=== PATIENT | female | born 2000 | race Caucasian/White ===

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

== ENCOUNTER 2022-07-01 11:40 | Outpatient (REF) | payer OTHER, SELFPAY ==
[2022-07-01 12:48] LABS: Estimated Average Glucose 105 mg/dL; Hemoglobin A1c % 5.3 %
[2022-07-01 13:17] LABS: Cholesterol 253 mg/dL; HDL Cholesterol 78 mg/dL; LDL Cholesterol Calculated 144 mg/dl; Triglycerides 155 mg/dL
== END 2022-07-01 11:41 | disposition home or self-care (01) ==
LOC: HO.LAB 11:40
PROVIDERS: PCP Family Medicine; Visit Provider Registered Nurse Psychiatric/Mental Health, Child & Adolescent
DX: Z79.899 Other long term (current) drug therapy (principal)
CPT/HCPCS: 36415; 80061; 83036

== ENCOUNTER 2022-08-12 10:57 | Outpatient (REF) | payer OTHER, SELFPAY ==
[2022-08-12 17:21] LABS: TSH reflex Free T4 1.68 uIU/mL (0.32-4.0)
== END 2022-08-12 10:58 | disposition home or self-care (01) ==
LOC: HO.10HDL 10:57
PROVIDERS: Visit Provider Pediatrics Pediatric Endocrinology
DX: E03.9 Hypothyroidism, unspecified (principal)
CPT/HCPCS: 36415; 84443

== ENCOUNTER 2022-12-06 17:51 | Emergency (ER) | payer OTHER, SELFPAY ==
[2022-12-06 18:13] VITALS: BP 163/88; PULSE 124; RESP 20; TEMP 37.1; O2SAT 100; BMI 28.8
--- NOTE | 2022-12-06 18:13 | ED_ITS ---
HPI - General Adult General Chief complaint: Ear Problems <YAMILET Carcamo - Last Filed: 12/06/22 18:17> Stated complaint: back of left ear object <YAMILET Carcamo - Last Filed: 12/06/22 18:17> Time Seen by Provider: 12/06/22 19:53 <YAMILET Carcamo - Last Filed: 12/06/22 18:17> Source: patient and family <Paty Renee NP - Last Filed: 12/06/22 20:17> Mode of arrival: ambulatory <Paty Renee NP - Last Filed: 12/06/22 20:17> Limitations: physical limitation (Cerebral palsy, autism) <Paty Renee NP - Last Filed: 12/06/22 20:17> History of Present Illness HPI narrative: 22-year-old female, with father at bedside, with past medical history of autism and cerebral palsy presents for a foreign body in her left ear lobe. <Paty Renee NP - Last Filed: 12/06/22 20:17> Onset (ago): day(s) (1) <Paty Renee NP - Last Filed: 12/06/22 20:17> Location: left (Ear lobe) <Paty Renee NP - Last Filed: 12/06/22 20:17> Radiation: non-radiation <Paty Renee NP - Last Filed: 12/06/22 20:17> Severity: mild <Paty Renee NP - Last Filed: 12/06/22 20:17> Quality: aching <Paty Renee NP - Last Filed: 12/06/22 20:17> Pain Consistency: constant <Paty Renee NP - Last Filed: 12/06/22 20:17> Relieving factors: none <Paty Renee NP - Last Filed: 12/06/22 20:17> Exacerbating factors: other (Palpation) <Paty Renee NP - Last Filed: 12/06/22 20:17> Associated symptoms: denies other symptoms <Paty Renee NP - Last Filed: 12/06/22 20:17> Treatments prior to arrival: none <Paty Renee NP - Last Filed: 12/06/22 20:17> Related Data Home medications: Previous Rx's Medication Instructions Recorded lorazepam 1 mg tablet (Ativan) 1 mg PO DAILY PRN seizure activity 07/05/21 #10 tabs <YAMILET Carcamo - Last Filed: 12/06/22 18:17> Allergies/adverse reactions: Allergies Allergy/AdvReac Type Severity Reaction Status Date / Time No Known Allergies Allergy Verified 09/22/20 20:31 <YAMILET Carcamo - Last Filed: 12/06/22 18:17> Review of Systems Review of Systems: ENT/Mouth: Positive foreign body to left ear lobe Skin: No Skin lacerations, No rash <Paty Renee NP - Last Filed: 12/06/22 20:17> Yes all other systems are reviewed and are negative <Paty Renee NP - Last Filed: 12/06/22 20:17> [facility] Past Medical History Attestation statement: The following information was validated with the patient. <Paty Renee NP - Last Filed: 12/06/22 20:17> Source: old records reviewed <Paty Renee NP - Last Filed: 12/06/22 20:17> Medical History: Medical History Autism Cerebral palsy Development disorder, mixed GERD (gastroesophageal reflux disease) <YAMILET Carcamo - Last Filed: 12/06/22 18:17> Social History Social History: Social History Alcohol intake: never Patient Tobacco Use Status: Never used Tobacco Advance Directives: No Advance Directives Information Provided: No <YAMILET Carcamo Last Filed: 12/06/22 18:17> Physical Exam ED Vital Signs: Vital Signs - 24 hr 12/06/22 18:13 Temperature 98.7 F Pulse Rate 124 H Respiratory Rate 20 Blood Pressure 163/88 H Pulse Oximetry 100 Oxygen Delivery Method Room Air BMI result Body Mass Index 28.8 <YAMILET Carcamo Last Filed: 12/06/22 18:17> Vital Signs - 24 hr 12/06/22 18:13 Temperature 98.7 F Pulse Rate 124 H Respiratory Rate 20 Blood Pressure 163/88 H Pulse Oximetry 100 Oxygen Delivery Method Room Air BMI result Body Mass Index 28.8 <Paty Renee NP - Last Filed: 12/06/22 20:17> Appearance: Alert. Oriented X3. No acute distress. Eyes: Pupils equal, round and reactive to light. ENT: Pharynx normal. earing back to the left ear lobe. Neck: Normal inspection. Neck supple. CVS: Normal heart rate and rhythm. Pulses normal. Respiratory: No respiratory distress. Breath sounds normal. Skin: Skin warm and dry. Normal skin color. Normal skin turgor. Extremities: Gait balanced and coordinated. Neuro: No motor deficit. No sensory deficit. Cranial nerves 2-12 intact <Paty Renee NP - Last Filed: 12/06/22 20:17> Course Course Course Narrative: RME - 22 yo female with history of cerebral palsy, developmental delay, autism, seizures who presents to the ER for evaluation of a stuck earring back in her left ear. Anxious in triage. Plan: LMX vs SQ lido for better exam <YAMILET Carcamo - Last Filed: 12/06/22 18:17> RME - 22 yo female with history of cerebral palsy, developmental delay, autism, seizures who presents to the ER for evaluation of a stuck earring back in her left ear. Anxious in triage. Plan: LMX vs SQ lido for better exam 20:00 patient has a palpable foreign body to the left ear lobe. 1% lidocaine 1 mL injected, 1 mm gisella made with an 11 blade scalpel to the back of the ear lobe. earing back successfully removed without difficulty. Patient tolerated procedure well. Father at bedside throughout the entire procedure. Plan is to allow the ear to heal before applying any earrings. I did let the father know that she may need to have her ears re pierced. Supportive measures with Tylenol and Motrin. Father verbalized understanding of and agrees to plan of care discharge home. <Paty Renee NP - Last Filed: 12/06/22 20:17> Procedures Foreign Body Removal Time Out Performed: yes <Paty Renee NP - Last Filed: 12/06/22 20:17> Site: right and ear (Ear lobe) <Paty Renee NP - Last Filed: 12/06/22 20:17> Description of foreign body: other (earing back) <Paty Renee NP - Last Filed: 12/06/22 20:17> Technique: removal with forceps and incision made to facilitate removal <Paty Renee NP - Last Filed: 12/06/22 20:17> Confirmed by:: direct visualization <Paty Renee NP - Last Filed: 12/06/22 20:17> Complications: none <Paty Renee NP - Last Filed: 12/06/22 20:17> Discharge Plan Discharge Clinical Impression: Foreign body of left ear lobe <YAMILET Carcamo - Last Filed: 12/06/22 18:17> Patient Disposition: Home, Self-Care <YAMILET Carcamo - Last Filed: 12/06/22 18:17> Instructions: Soft Tissue Foreign Body (ED) <YAMILET Carcamo - Last Filed: 12/06/22 18:17> Additional Instructions: Your child was evaluated for an earring back imbedded into her left ear lobe. We successfully removed the foreign body. Please keep bandage in place as needed. Do not put earrings in this patient is here until wounds completely healed. She may need to have her ears pierced again. Thank you for choosing this emergency department for evaluation. Please follow-up with primary care physician as needed. Return to the emergency department for any new, concerning, or worsening symptoms. <YAMILET Carcamo - Last Filed: 12/06/22 18:17> Prescriptions: No Action lorazepam [Ativan] 1 mg tablet 1 mg PO DAILY PRN (Reason: seizure activity) Qty: 10 0RF <YAMILET Carcamo Last Filed: 12/06/22 18:17>
--- OUTSIDE RECORDS SUMMARY | 2022-12-06 19:35 | XMS_ITS | Continuity of Care Document ---
Author Name Unknown Organization [facility] Address [address] [place] [address]- Care Team Providers Care Transportation Supervisor Name Role Phone Jenni Marin MD Primary Care Physician Encounter [facility] [place] Date(s): 03/20/20 - 03/27/20 [facility] [address] [place] [address]- [facility] Attending Physician: Jenni Marin MD Admitting Physician: Jenni Marin MD Referring Physician: Jenni Marin MD Allergies, Adverse Reactions, Alerts Substance Reaction Severity Status NKA Active Medications Docusate 0 Refills, Maintenance, 06/08/18 15:17:34 EDT Start Date: 06/08/18 Status: Ordered levothyroxine 75 mcg (0.075 mg) oral tablet 1 tablet = 75 mcg, By Mouth, Daily, 1 tablet daily, 3 month supply, # 90 tablet, 4 Refills, Maintenance, 10/08/19 10:25:00 EST, Tablet, [id number], 157.9, cm, 10/08/19 10:07:00 EST, Height, 65.2, kg, 10/08/19 10:05:00 EST, Dry Weight Start Date: 10/08/19 Status: Ordered Melatonin Daily at bedtime, 0 Refills, Maintenance, 08/24/18 10:55:08 EST Start Date: 08/24/18 Status: Ordered omeprazole 20 mg oral delayed release tablet 1 tablet = 20 mg, By Mouth, Daily, # 90 tablet, 2 Refills, Maintenance, 06/26/19 13:32:54 EDT Start Date: 06/26/19 Status: Ordered Propranolol Refills 0, Maintenance, 10/08/19 10:06:00 EST Start Date: 10/08/19 Status: Ordered RisperDAL 1 mg oral tablet 1 mg, 1, tablet, By Mouth, 2 times a day, Refills 0, Maintenance, 06/08/18 15:17:16 EDT Start Date: 06/08/18 Status: Ordered Problem List Condition Effective Dates Status Health Status Inform ant Aiden's thyroiditis(Confirmed) Active Social History Social History Type Response Smoking Status Never (less than 100 in lifetime) entered on: 07/06/19 Sex
--- OUTSIDE RECORDS SUMMARY | 2022-12-06 19:35 | XMS_ITS | Continuity of Care Document ---
Author Name Unknown Organization [facility] ndocrin[facility] Address [address] [place] [address]- Care Team Providers Care Document Review Specialist Name Role Phone Tania ERNANDEZ, Jenni Feng Primary Care Physician Encounter [facility] Date(s): 05/01/20 - 05/31/20 [facility] [address] [place] [address]- [facility] Attending Physician: AdmSrinivasan cabral Admitting Physician: Admtr, Srinivasan Referring Physician: Admtr, Ar8 Allergies, Adverse Reactions, Alerts Substance Reaction Severity Status NKA Active Medications Docusate 0 Refills, Maintenance, 06/08/18 15:17:34 EDT Start Date: 06/08/18 Status: Ordered levothyroxine 75 mcg (0.075 mg) oral tablet 1 tablet = 75 mcg, By Mouth, Daily, 1 tablet daily, 3 month supply, # 90 tablet, 4 Refills, Maintenance, 10/08/19 10:25:00 EST, Tablet, [facility] #[id number], 157.9, cm, 10/08/19 10:07:00 EST, Height, 65.2, kg, 10/08/19 10:05:00 EST, Dry Weight Start Date: 10/08/19 Status: Ordered Lorazepam 0 Refills, Maintenance, 05/01/20 15:24:00 EDT Start Date: 05/01/20 Status: Ordered Melatonin Daily at bedtime, 0 [...] Health Status Inform ant Aiden's thyroiditis(Confirmed) Active Vital Signs Most recent to oldest [Reference Range]: 1 Height 156.9 cm (06/08/18 3:04 PM) Weight 56.9 kg (06/08/18 3:04 PM) Pulse Rate [55-90 bpm] 85 bpm (06/08/18 3:04 PM) Body Mass Index [18.5-24.99] 23.11 (06/08/18 3:04 PM) Blood Pressure [80-130/50-80 mm Hg] 105/ 53mm Hg (06/08/18 3:04 PM) Blood pressure sites Arm, right (06/08/18 3:04 PM) Dry Weight 56.9 kg (06/08/18 3:04 PM) Social History Social History Type Response Smoking Status Never (less than 100 in lifetime) entered on: 07/06/19 Sex
--- OUTSIDE RECORDS SUMMARY | 2022-12-06 19:35 | XMS_ITS | Continuity of Care Document ---
Author Name Unknown Organization [facility] Address Unknown Care Team Providers Care Wet Mix Operator Name Role Phone Tania ERNANDEZ, Jenni Feng Primary Care Physician Encounter [facility] [place] Date(s): 06/24/21 - 07/24/21 [facility] Attending Physician: Srinivasan Sargent Admitting Physician: Srinivasan Sargent Referring Physician: AdmtrSrinivasan Allergies, Adverse Reactions, Alerts Substance Reaction Severity Status NKA Active Medications cetirizine 10 mg oral capsule 1 capsule = 10 mg, By Mouth, Daily, PRN for allergy symptoms, # 40 capsule, 0 Refills, Maintenance,08/01/20 10:00:00 EST, Capsule, Partial fill upon patient request Start Date: 08/01/20 Status: Ordered cloNIDine 0.1 mg oral tablet 0.1 mg, 1, tablet, By Mouth, 2 times a day, Refills 0, Maintenance, 08/01/20 10:00:00 EST, Partial fill upon patient request Start Date: 08/01/20 Status: Ordered Docusate 0 Refills, Maintenance, 06/08/18 15:17:34 EDT Start Date: 06/08/18 Status: Ordered drospirenone-ethinyl estradiol 3 mg-0.03 mg oral tablet 1 tablet, By Mouth, Daily, # 84 tablet, 0 Refills, [id number], 84, TAKE 1 TABLET BY MOUTH DAILY, 157.7, cm, 08/01/20 9:57:00 EST, Height, 68.8, kg, 11/07/19 13:20:00 EST, Dry Weight Start Date: 05/04/21 Status: Ordered famotidine 20 mg oral tablet 20 mg, 1, tablet, By Mouth, 2 times a day, # 60 tablet, Refills 3, Tot. Refills 3, Maintenance, 06/02/21 11:11:00 EDT, Route to Pharmacy Electronically, [facility]/pharmacy #[id number], Partial fill upon patient request if the prescription is for a schedule II opi... Start Date: 06/02/21 Stop Date: 09/30/21 Status: Ordered levothyroxine 0.088 mg oral tablet 1 tablet = 88 mcg, By Mouth, Daily, # 90 tablet, 4 Refills, Maintenance, 07/09/21 22:34:00 EDT, Tablet, [facility]/pharmacy #[id number], Partial fill upon patient request if the prescription is for a schedule II opioid drug., 157.6, cm, 07/09/21 15:27:00 EDT, Heig... Start Date: 07/09/21 Status: Ordered Lorazepam 0 Refills, Maintenance, 05/01/20 15:24:00 EDT Start Date: 05/01/20 Status: Ordered Melatonin Daily at bedtime, 0 Refills, Maintenance, 08/24/18 10:55:08 EST Start Date: 08/24/18 Status: Ordered MiraLax oral powder for reconstitution = 17 Gm, By Mouth, Daily, dissolve in water or juice, # 527 Gm, 4 Refills, Maintenance, 06/24/21 15:19:00 EDT, [facility]/pharmacy #[id number], Partial fill upon patient request if the prescription is for a schedule II opioid drug., 17 Gm By Mouth Daily,x30 min,In... Start Date: 06/24/21 Stop Date: 06/24/21 Status: Ordered Propranolol Refills 0, Maintenance, 07/09/21 15:40:00 EDT, Partial fill upon patient request if the prescription is for a schedule II opioid drug. Start Date: 07/09/21 Status: Ordered RisperDAL 1 mg oral tablet 1 mg, 1, tablet, By Mouth, 2 times a day, Refills 0, Maintenance, 06/08/18 15:17:16 EDT Start Date: 06/08/18 Status: Ordered Senna By Mouth, 0 Refills, Maintenance, 07/09/21 15:40:00 EDT, Partial fill upon patient request if the prescription is for a schedule II opioid drug. Start Date: 07/09/21 Status: Ordered Senna 8.6 mg oral tablet 8.6 mg, 1, tablet, By Mouth, Daily at bedtime, 1-2 tablets daily at bedtime for 30 days, # 30 tablet, Refills 4, Tot. Refills 4, Acute, 11/21/21 15:18:00 EDT, 06/24/21 15:18:00 EDT, Route to PharmacyElectronically, [facility]/pharmacy #[id number], Partial fill up... Start Date: 06/24/21 Stop Date: 11/21/21 Status: Ordered Problem List Condition Effective Dates Status Health Status Inform ant Aiden's thyroiditis(Confirmed) Active Social History Social History Type Response Smoking Status Never (less than 100 in lifetime) entered on: 07/06/19 Sex
--- OUTSIDE RECORDS SUMMARY | 2022-12-06 19:35 | XMS_ITS | Continuity of Care Document ---
Author Name Unknown Organization [facility] Address [address] [place] [address]- Care Team Providers Care Principal Law Clerk Name Role Phone Tania ERNANDEZ, Jenni Feng Primary Care Physician Encounter [facility] [place] Date(s): 08/06/22 - 09/08/22 [facility] [address] [place] [address]- Attending Physician: Mandy Westfall NP Admitting Physician: Mandy Westfall NP Allergies, Adverse Reactions, Alerts Substance Reaction Severity Status buPROPion Active Medications cetirizine 10 mg oral capsule [...] tablet, By Mouth, Daily, # 84 tablet, 4 Refills, 10/05/21 12:06:00 EST, [facility]/pharmacy #[id number], 1 tablet By Mouth Daily, 157.6, cm, 10/05/21 9:09:00 EST, Height, 67, kg, 08/07/21 8:37:00 EST, Dry Weight Start Date: 10/05/21 Status: Ordered famotidine 20 mg oral tablet 20 mg, 1, tablet, By Mouth, 2 times a day, # 60 tablet, Refills 3, Tot. Refills 3, Maintenance, 06/02/21 11:11:00 EDT, [id number] Partial fill upon patient request if the prescription is for a schedule II opi... Start Date: 06/02/21 Stop Date: 09/30/21 Status: Ordered levothyroxine 0.088 mg oral tablet 1 tablet = 88 mcg, By Mouth, Daily, # 90 tablet, 4 Refills, Maintenance, 07/27/22 10:02:00 EST, Tablet, [facility]/pharmacy #[id number], Partial fill upon patient request if the prescription is for a schedule II opioid drug., 157.9, cm, 02/10/22 13:44:00 EDT, Heig... Start Date: 07/27/22 Status: Ordered Lorazepam 0 Refills, Maintenance, 05/01/20 15:24:00 EDT Start Date: 05/01/20 Status: Ordered Melatonin Daily at bedtime, 0 Refills, Maintenance, 08/24/18 10:55:08 EST Start Date: 08/24/18 Status: Ordered MiraLax oral powder for reconstitution = 17 Gm, By Mouth, Daily, dissolve in water or juice, # 527 Gm, 4 Refills, Maintenance, 08/09/22 15:14:00 EST, [facility]/pharmacy #[id number], Partial fill upon patient request if the prescription is for a schedule II opioid drug., 17 Gm By Mouth Daily,x30 min,In... Start Date: 08/09/22 Stop Date: 08/09/22 Status: Ordered omeprazole 20 mg oral enteric coated capsule 1 capsule = 20 mg, By Mouth, Daily, # 30 capsule, 3 Refills, Maintenance, 08/09/22 15:14:00 EST, [facility]/pharmacy #[id number], Partial fill upon patient request if the prescription is for a schedule II opioid drug., 158.4, cm, 08/09/22 14:50:00 EST, Height, 65.... Start Date: 08/09/22 Stop Date: 12/07/22 Status: Ordered Propranolol Refills 0, Maintenance, 07/09/21 [...] 1, tablet, By Mouth, Daily at bedtime, for 30 days, # 30 tablet, Refills 6, Tot. Refills 6,Acute, 03/07/23 15:14:00 EDT, 08/09/22 15:14:00 EST, Route to Pharmacy Electronically, [facility]/pharmacy#[id number], Partial fill upon patient request if the pre... Start Date: 08/09/22 Stop Date: 03/07/23 Status: Ordered Problem List Condition Confirmation Course Effective Dates Status Health St atus Informant Aiden's thyroiditis Confirmed Active Social History Social History Type Response Smoking Status Never (less than 100 in lifetime) entered on: 07/06/19 Sex Patient Care team information Care Team Personnel Name: Tania ERNANDEZ, Jenni Feng Position: [facility] General Pediatrics MD Member Role: PCP Address: Address: [address] [facility] [place] [address]- Care Team Related Persons Name: ANTONIA GENTILE Address: home [address] [place] [address] Name: LIZA GENTILE Address: home [address] [place] [address]
--- OUTSIDE RECORDS SUMMARY | 2022-12-06 19:35 | XMS_ITS | Continuity of Care Document ---
Author Name Unknown Organization [facility] E ndocrinology Address [address] [place] [address]- Care Team Providers Care Supervisor Sewing Room Name Role Phone Jenni Marin MD Primary Care Physician [phone] Encounter [facility] Date(s): 05/01/20 - 05/08/20 [facility] [address] [place] [address]- [facility] Attending Physician: Yue Quevedo DO Referring Physician: Jenni Marin MD Allergies, Adverse Reactions, Alerts Substance Reaction Severity Status NKA Active Medications Docusate 0 Refills, Maintenance, 06/08/18 15:17:34 EDT Start Date: 06/08/18 Status: Ordered levothyroxine 75 mcg (0.075 mg) oral tablet 1 tablet = 75 mcg, By Mouth, Daily, 1 tablet daily, 3 month supply, # 90 tablet, 4 Refills, Maintenance, 10/08/19 10:25:00 EST, Tablet, [facility]/pharmacy #[id number], 157.9, cm, 10/08/19 10:07:00 EST, Height, [...]
--- OUTSIDE RECORDS SUMMARY | 2022-12-06 19:35 | XMS_ITS | Continuity of Care Document ---
Author Name Unknown Organization [facility] enter[facility] Address [address] [place] [address]- Care Team Providers Care Account Administrator Name Role Phone Tania ERNANDEZ, Jenni Feng Primary Care Physician Encounter [facility] [place] Date(s): 08/06/22 - 09/05/22 [facility] [address] [place] [address] Allergies, Adverse Reactions, Alerts Substance Reaction Severity [...] 84 tablet, 4 Refills, 10/05/21 12:06:00 EST, [id number], 1 tablet By Mouth Daily, 157.6, cm, 10/05/21 9:09:00 EST, Height, 67, kg, 08/07/21 8:37:00 EST, Dry Weight Start Date: 10/05/21 Status: Ordered famotidine 20 mg oral tablet 20 mg, 1, tablet, By Mouth, 2 times a day, # 60 tablet, Refills 3, Tot. Refills 3, Maintenance, 06/02/21 11:11:00 EDT, [id number] Partial fill upon patient request if the prescription is for a schedule II opi... Start Date: 06/02/21 Stop Date: 09/30/21 Status: Ordered levothyroxine 0.088 mg oral tablet 1 tablet = 88 mcg, By Mouth, Daily, # 90 tablet, 4 Refills, Maintenance, 07/27/22 10:02:00 EST, Tablet, [facility]/pharmacy #[id number], Partial fill upon patient request if [...] Gm, 4 Refills, Maintenance, 08/09/22 15:14:00 EST, [facility]/pharmacy #[id number], Partial fill upon patient request if the prescription is for a schedule II opioid drug., 17 Gm By Mouth Daily,x30 min,In... Start Date: 08/09/22 Stop Date: 08/09/22 Status: Ordered omeprazole 20 mg oral enteric coated capsule 1 capsule = 20 mg, By Mouth, Daily, # 30 capsule, 3 Refills, Maintenance, 08/09/22 15:14:00 EST, [facility]/pharmacy #[id number], Partial fill upon patient request if [...] 08/09/22 15:14:00 EST, Route to Pharmacy Electronically, [facility]/pharmacy#[id number], Partial fill upon patient request if the pre... Start Date: 08/09/22 Stop Date: 03/07/23 Status: Ordered Problem List Condition Confirmation Course Effective Dates Status Health St atus Informant Aiden's thyroiditis Confirmed Active Social History Social History Type Response Smoking Status Never (less than 100 in lifetime) entered on: 07/06/19 Sex Patient Care team information Care Team Personnel Name: Tania ERNANDEZ, Jenni Feng Position: [facility] Pediatrics MD Member Role: PCP Address: Address: [address] [facility] [place] [address]- Care Team Related Persons Name: ANTONIA GENTILE Address: home [address] [place] [address] Name: LIZA GENTILE Address: home [address] [place] [address]
--- OUTSIDE RECORDS SUMMARY | 2022-12-06 19:35 | XMS_ITS | Continuity of Care Document ---
Author Name Unknown Organization [facility] Pediatric E ndocrinology Address [address] [place] [address]- Care Team Providers Care Junior Architect Name Role Phone Jenni Marin MD Primary Care Physician [phone] Encounter [facility] [place] Date(s): 10/08/19 - 10/15/19 [facility] [address] [place] [address] [facility] Attending Physician: uYe Quevedo DO Referring Physician: Jenni Marin MD [...] 13:32:54 EDT Start Date: 06/26/19 Status: Ordered Paxil 10 mg oral tablet 10 mg, 1, tablet, By Mouth, Daily, Refills 0, Maintenance, 10/08/19 10:05:00 EST Start Date: 10/08/19 Status: Ordered Propranolol Refills 0, Maintenance, 10/08/19 10:06:00 EST Start Date: 10/08/19 Status: Ordered RisperDAL 1 mg oral tablet 1 mg, 1, tablet, By Mouth, 2 times a day, Refills 0, Maintenance, 06/08/18 15:17:16 EDT Start Date: 06/08/18 Status: Ordered Problem List Condition Effective Dates Status Health Status Inform ant Aiden's thyroiditis(Confirmed) Active Vital Signs Most recent to oldest [Reference Range]: 1 Height 157.9 cm (10/08/19 10:05 AM) Weight 65.2 kg (10/08/19 10:05 AM) Pulse Rate [55-90 bpm] 85 bpm (10/08/19 10:05 AM) Body Mass Index [18.5-24.99] 26.15 *H* (10/08/19 10:05 AM) Blood Pressure [80-130/50-80 mm Hg] 106/ 61mm Hg (10/08/19 10:05 AM) Dry Weight 65.2 kg (10/08/19 10:05 AM) Social History Social History Type Response Smoking Status Never (less than 100 in lifetime) entered on: 07/06/19 Sex
--- OUTSIDE RECORDS SUMMARY | 2022-12-06 19:35 | XMS_ITS | Continuity of Care Document ---
Author Name Unknown Organization [facility] Address [address] [place] [address]- Care Team Providers Care Business Intelligence Developer Name Role Phone Tania ERNANDEZ, Jenni Feng Primary Care Physician [place] [facility] [place] 07/09/21 - 08/08/21 [facility] [address] [place] [address]- [place] Allergies, Adverse Reactions, Alerts Substance Reaction Severity [...] Mouth, Daily, # 84 tablet, 4 Refills, 07/29/21 11:46:00 EST, [id number], 1 tablet By Mouth Daily, 157.6, cm, 07/09/21 15:27:00 EDT, Height, 71.3, kg, 07/09/21 15:27:00 EDT, Dry Weight Start Date: 07/29/21 Status: Ordered famotidine 20 mg oral tablet 20 mg, 1, tablet, By Mouth, 2 times a day, # 60 tablet, Refills 3, Tot. Refills 3, Maintenance, 06/02/21 11:11:00 EDT, Route to Pharmacy Electronically, [facility]/pharmacy #[id number], Partial fill upon patient request if the prescription is for a schedule II opi... Start Date: 06/02/21 Stop Date: 09/30/21 Status: Ordered levothyroxine 0.088 mg oral tablet 1 tablet = 88 mcg, By Mouth, Daily, # 90 tablet, 4 Refills, Maintenance, 07/09/21 22:34:00 EDT, Tablet, [facility]/pharmacy #[id number], Partial fill upon patient request [...] Gm, 4 Refills, Maintenance, 06/24/21 15:19:00 EDT, [facility]/pharmacy #[id number], Partial fill upon patient request [...] EDT, 06/24/21 15:18:00 EDT, Route to PharmacyElectronically, [facility]/pharmacy #[id number], Partial fill up... Start Date: 06/24/21 Stop Date: 11/21/21 Status: Ordered Problem List Condition Effective Dates Status Health Status Inform ant Aiden's thyroiditis(Confirmed) Active Social History Social History Type Response Smoking Status Never (less than 100 in lifetime) entered on: 07/06/19 Sex
--- OUTSIDE RECORDS SUMMARY | 2022-12-06 19:35 | XMS_ITS | Continuity of Care Document ---
Author Name Unknown Organization [facility] ndocr[facility] Address [address] [place] [address]- Care Team Providers Care Veterinary Nurse Name Role Phone Tania ERNANDEZ, Jenni Feng Primary Care Physician [phone] Encounter [facility] [place] Date(s): 08/20/21 - 09/19/21 [facility] [address] [place] [address] [place] Allergies, Adverse Reactions, Alerts Substance Reaction [...] tablet, 4 Refills, 07/29/21 11:46:00 EST, [id number], 1 tablet By Mouth Daily, 157.6, cm, 07/09/21 15:27:00 EDT, Height, 71.3, kg, 07/09/21 15:27:00 EDT, Dry Weight Start Date: 07/29/21 Status: Ordered famotidine 20 mg oral tablet 20 mg, 1, tablet, By Mouth, 2 times a day, # 60 tablet, Refills 3, Tot. Refills 3, Maintenance, 06/02/21 11:11:00 EDT, Route to Pharmacy Electronically, [facility]/pharmacy #[id number], Partial fill upon patient request if the prescription is for a schedule II opi... Start Date: 06/02/21 Stop Date: 09/30/21 Status: Ordered levothyroxine 0.088 mg oral tablet 1 tablet = 88 mcg, By Mouth, Daily, # 90 tablet, 4 Refills, Maintenance, 07/09/21 22:34:00 EDT, Tablet, [facility]/pharmacy #[id number], Partial fill upon patient request if [...] Gm, 4 Refills, Maintenance, 06/24/21 15:19:00 EDT, [facility]/pharmacy #[id number], Partial fill upon patient request if the prescription is for a schedule II opioid drug., 17 Gm By Mouth Daily,x30 min,In... Start Date: 06/24/21 Stop Date: 06/24/21 Status: Ordered omeprazole 20 mg oral enteric coated capsule 1 capsule = 20 mg, By Mouth, 2 times a day, # 60 capsule, 3 Refills, Maintenance, 08/13/21 9:43:00 EST, [facility]/pharmacy #[id number], Partial fill upon patient request if the prescription is for a schedule II opioid drug., 157.6, cm, 07/09/21 15:27:00 EDT, Heig... Start Date: 08/13/21 Stop Date: 12/11/21 Status: Ordered Propranolol Refills 0, Maintenance, 07/09/21 [...] EDT, 06/24/21 15:18:00 EDT, Route to PharmacyElectronically, [facility]/pharmacy #[id number], Partial fill up... Start Date: 06/24/21 Stop Date: 11/21/21 Status: Ordered Problem List Condition Effective Dates Status Health Status Inform ant Aiden's thyroiditis(Confirmed) Active Social History Social History Type Response Smoking Status Never (less than 100 in lifetime) entered on: 07/06/19 Sex
--- OUTSIDE RECORDS SUMMARY | 2022-12-06 19:35 | XMS_ITS | Continuity of Care Document ---
Author Name Unknown Organization [facility] Gastro enterology Address Unknown Care Team Providers Care Die Cast Supervisor Name Role Phone Tania ERNANDEZ, Jenni Feng Primary Care Physician [place] [facility] [place]21 [facility] [address] [place] [address] Allergies, Adverse Reactions, Alerts Substance Reaction Severity [...] Mouth, Daily, # 84 tablet, 0 Refills, [id number], 84, TAKE 1 TABLET BY MOUTH DAILY, 157.7, cm, 08/01/20 9:57:00 EST, Height, 68.8, kg, 11/07/19 13:20:00 EST, Dry Weight Start Date: 05/04/21 Status: Ordered famotidine 20 mg oral tablet 20 mg, 1, tablet, By Mouth, 2 times a day, # 60 tablet, Refills 3, Tot. Refills 3, Maintenance, 06/02/21 11:11:00 EDT, Route to Pharmacy Electronically, [facility]/pharmacy #[id number], Partial fill upon patient request if the prescription is for a schedule II opi... Start Date: 06/02/21 Stop Date: 09/30/21 Status: Ordered levothyroxine 0.088 mg oral tablet 1 tablet = 88 mcg, By Mouth, Daily, # 90 tablet, 4 Refills, Maintenance, 07/09/21 22:34:00 EDT, Tablet, [facility]/pharmacy #[id number], Partial fill upon patient request [...] Gm, 4 Refills, Maintenance, 06/24/21 15:19:00 EDT, [facility]/pharmacy #[id number], Partial fill upon patient request [...] EDT, 06/24/21 15:18:00 EDT, Route to PharmacyElectronically, [facility]/pharmacy #[id number], Partial fill up... Start Date: 06/24/21 Stop Date: 11/21/21 Status: Ordered Problem List Condition Effective Dates Status Health Status Inform ant Aidne's thyroiditis(Confirmed) Active Social History Social History Type Response Smoking Status Never (less than 100 in lifetime) entered on: 07/06/19 Sex
--- OUTSIDE RECORDS SUMMARY | 2022-12-06 19:35 | XMS_ITS | Continuity of Care Document ---
Author Name Unknown Organization [facility] Address [address] [place] [address]- Care Team Providers Care Supervisor Lamp Shades Name Role Phone Jenni Marin MD Primary Care Physician [place] [facility] [place] 09[place]/21 [facility] [address] [place] [address]- Attending Physician: Catrachita Holder MD Referring Physician: Jenni Marin MD Allergies, [...] tablet, 4 Refills, 07/29/21 11:46:00 EST, [id number], 1 tablet By Mouth Daily, 157.6, cm, 07/09/21 15:27:00 EDT, Height, 71.3, kg, 07/09/21 15:27:00 EDT, Dry Weight Start Date: 07/29/21 Status: Ordered famotidine 20 mg oral tablet 20 mg, 1, tablet, By Mouth, 2 times a day, # 60 tablet, Refills 3, Tot. Refills 3, Maintenance, 06/02/21 11:11:00 EDT, Route to Pharmacy Electronically, [facility]/pharmacy #[id number], Partial fill upon patient request if the prescription is for a schedule II opi... Start Date: 06/02/21 Stop Date: 09/30/21 Status: Ordered levothyroxine 0.088 mg oral tablet 1 tablet = 88 mcg, By Mouth, Daily, # 90 tablet, 4 Refills, Maintenance, 07/09/21 22:34:00 EDT, Tablet, [facility]/pharmacy #[id number], Partial fill upon patient request if [...] 4 Refills, Maintenance, 06/24/21 15:19:00 EDT, [facility]/pharmacy #[id number], Partial fill upon patient request if the prescription is for a schedule II opioid drug., 17 Gm By Mouth Daily,x30 min,In... Start Date: 06/24/21 Stop Date: 06/24/21 Status: Ordered omeprazole 20 mg oral enteric coated capsule 1 capsule = 20 mg, By Mouth, 2 times a day, # 60 capsule, 3 Refills, Maintenance, 08/13/21 9:43:00 EST, [facility]/pharmacy #[id number], Partial fill upon patient request if [...] 06/24/21 15:18:00 EDT, Route to PharmacyElectronically, [facility]/pharmacy #[id number], Partial fill up... Start Date: 06/24/21 Stop Date: 11/21/21 Status: Ordered Problem List Condition Effective Dates Status Health Status Inform ant Aiden's thyroiditis(Confirmed) Active Social History Social History Type Response Smoking Status Never (less than 100 in lifetime) entered on: 07/06/19 Sex
--- OUTSIDE RECORDS SUMMARY | 2022-12-06 19:35 | XMS_ITS | Continuity of Care Document ---
Author Name Unknown Organization [facility] Gastro enterology Address [address] [place] [address]- Care Team Providers Care Evaluator Transfer Students Name Role Phone Tania ERNANDEZ, Jenni Feng Primary Care Physician [phone] [place] [facility] [place] 10[place]29/20 [facility] [address] [place] [address]- Attending Physician: AdmSrinivasan cabral Admitting Physician: Admtr, Ar8 Referring Physician: Admtr, Ar8 Allergies, Adverse Reactions, Alerts Substance Reaction Severity Status NKA Active Medications buPROPion 100 mg oral tablet 1 tablet = 100 mg, By Mouth, 2 times a day, 0 Refills, Maintenance, 08/01/20 10:00:00 EST, Partial fill upon patient request Start Date: 08/01/20 Status: Ordered cetirizine 10 mg oral capsule 1 capsule [...] 15:17:34 EDT Start Date: 06/08/18 Status: Ordered famotidine 20 mg oral tablet 20 mg, 1, tablet, By Mouth, 2 times a day, # 60 tablet, Refills 3, Tot. Refills 3, Maintenance, 09/29/20 15:59:00 EST, Route to Pharmacy Electronically, [facility]/pharmacy #[id number], Partial fill upon patient request if the prescription is for a schedule II opi... Start Date: 09/29/20 Stop Date: 01/27/21 Status: Ordered levothyroxine 75 mcg (0.075 mg) oral tablet 1 tablet = 75 mcg, By Mouth, Daily, 1 tablet daily, 3 month supply, # 90 tablet, 4 Refills, Maintenance, 10/14/20 9:28:00 EST, Tablet, [facility]/pharmacy #[id number], 157.7, cm, 08/01/20 9:57:00 EST, Height, 68.8, kg, 11/07/19 13:20:00 EST, Dry Weight Start Date: 10/14/20 Status: Ordered Lorazepam 0 Refills, Maintenance, 05/01/20 15:24:00 EDT Start Date: 05/01/20 Status: Ordered Melatonin Daily at bedtime, 0 Refills, Maintenance, 08/24/18 10:55:08 EST Start Date: 08/24/18 Status: Ordered MiraLax oral powder for reconstitution = 17 Gm, By Mouth, Daily, dissolve in water or juice, # 255 Gm, 0 Refills, Maintenance, 09/29/20 14:12:00 EST, [facility]/pharmacy #[id number], Partial fill upon patient request if the prescription is for a schedule II opioid drug., 17 Gm By Mouth Daily,x30 min,In... Start Date: 09/29/20 Stop Date: 09/29/20 Status: Ordered omeprazole 20 mg oral delayed [...] 15:17:16 EDT Start Date: 06/08/18 Status: Ordered Katerin 3 mg-0.03 mg oral tablet 1 tablet, By Mouth, Daily, # 84 tablet, 0 Refills, Maintenance, 08/01/20 18:17:00 EST, Tablet, [facility]/pharmacy #[id number], Partial fill upon patient request, 1 tablet By Mouth Daily, 157.7, cm, 08/01/20 9:57:00 EST, Height, 68.8, kg, 11/07/19 13:20:00 EST, . Start Date: 08/01/20 Status: Ordered Problem List Condition Effective Dates Status Health Status Inform ant Aiden's thyroiditis(Confirmed) Active Social History Social History Type Response Smoking Status Never (less than 100 in lifetime) entered on: 07/06/19 Sex
--- OUTSIDE RECORDS SUMMARY | 2022-12-06 19:35 | XMS_ITS | Continuity of Care Document ---
Author Name Unknown Organization [facility] ndocr[facility] Address [address] [place] [address]- Care Team Providers Care Parquetry Floor Layer Name Role Phone Tania ERNANDEZ, Jenni Feng Primary Care Physician [phone] [place] [facility] [place](s): 10/14/20 - 11/13/20 [facility] Endocr[facility] [address] [place] [address]- Allergies, Adverse Reactions, Alerts Substance Reaction Severity [...] 09/29/20 15:59:00 EST, Route to Pharmacy Electronically, [facility]/pharmacy #[id number], Partial fill upon patient request if the prescription is for a schedule II opi... Start Date: 09/29/20 Stop Date: 01/27/21 Status: Ordered levothyroxine 75 mcg (0.075 mg) oral tablet 1 tablet = 75 mcg, By Mouth, Daily, 1 tablet daily, 3 month supply, # 90 tablet, 4 Refills, Maintenance, 10/14/20 9:28:00 EST, Tablet, [facility]/pharmacy #[id number], 157.7, cm, 08/01/20 9:57:00 EST, Height, [...] Gm, 0 Refills, Maintenance, 09/29/20 14:12:00 EST, [facility]/pharmacy #[id number], Partial fill upon patient request [...] Daily, # 84 tablet, 0 Refills, Maintenance, 11/06/20 16:50:00 EST, Tablet, [id number], Partial fill upon patient request, 1 tablet By Mouth Daily, 157.7, cm, 08/01/20 9:57:00 EST, Height, 68.8, kg, 11/07/19 13:20:00 EST, . Start Date: 11/06/20 Status: Ordered Problem List Condition Effective Dates Status Health Status Inform ant Aiden's thyroiditis(Confirmed) Active Social History Social History Type Response Smoking Status Never (less than 100 in lifetime) entered on: 07/06/19 Sex
--- OUTSIDE RECORDS SUMMARY | 2022-12-06 19:35 | XMS_ITS | Continuity of Care Document ---
Author Name Unknown Organization [facility] ndocrin[facility] Address [address] [place] [address]- Care Team Providers Care Crown Assembly Machine Operator Name Role Phone Tania ERNANDEZ, Jenni Feng Primary Care Physician Encounter [facility] [place] Date(s): 10/08/19 - 10/18/19 [facility]ocr[facility] [address] [place] [address]- [facility] Attending Physician: Admtr, [id number] Admitting Physician: Admtr, [id number] Referring Physician: Admtr, Ar8 Allergies, Adverse Reactions, [...]
--- OUTSIDE RECORDS SUMMARY | 2022-12-06 19:35 | XMS_ITS | Continuity of Care Document ---
Author Name Unknown Organization [facility] ter Address [address] [place] [id number]- Care Team Providers Care De Alcoholizer Name Role Phone Jenni Marin MD Primary Care Physician [place] [facility] [id number] Date(s): 08/07/21 - 08/07/[address] [address]- Discharge Disposition: A-D/C Home Attending Physician: Walt Simpson MD Admitting Physician: Walt Simpson MD Referring Physician: Walt Simpson MD Allergies, Adverse Reactions, Alerts Substance Reaction [...] 06/02/21 11:11:00 EDT, Route to Pharmacy Electronically, [facility]/pharmacy #[id number], Partial fill upon patient request if the prescription is for a schedule II opi... Start Date: 06/02/21 Stop Date: 09/30/21 Status: Ordered levothyroxine 0.088 mg oral tablet 1 tablet = 88 mcg, By Mouth, Daily, # 90 tablet, 4 Refills, Maintenance, 07/09/21 22:34:00 EDT, Tablet, [facility]/pharmacy #[id number], Partial fill upon patient request [...] Gm, 4 Refills, Maintenance, 06/24/21 15:19:00 EDT, [facility]/pharmacy #[id number], Partial fill upon patient request [...] EDT, 06/24/21 15:18:00 EDT, Route to PharmacyElectronically, [facility]/pharmacy #[id number], Partial fill up... Start Date: 06/24/21 Stop Date: 11/21/21 Status: Ordered Problem List Condition Effective Dates Status Health Status Inform ant Aiden's thyroiditis(Confirmed) Active Vital Signs Most recent to oldest [Reference Range]: 1 2 3 Weight 67.0 kg (08/07/21 8:37 AM) 67.0 kg (08/07/21 8:36 AM) Oxygen Saturation [94-100 %] 96 % (08/07/21 10:23 AM) 97 % (08/07/21 10:16 AM) 100 % (08/07/21 10:14 AM) Pulse Rate [55-90 bpm] 114 bpm *H* (08/07/21 8:36 AM) Blood Pressure [71-110/30-71 mm Hg] 114/89mm Hg *H* (08/07/21 10:16 AM) 119/73mm Hg *H* (08/07/21 10:14 AM) 130/84mm Hg *H* (08/07/21 8:36 AM) Respiratory Rate [16-30 br/min] 15 br/min *L* (08/07/21 10:26 AM) 22 br/min (08/07/21 10:23 AM) 20 br/min (08/07/21 10:16 AM) Temperature [96.8-100.4 DegF] 98.4 DegF (08/07/21 8:36 AM) Mode of Delivery (Oxygen) Room air (08/07/21 10:26 AM) Room air (08/07/21 10:23 AM) Room air (08/07/21 10:16 AM) Blood pressure sites Arm, right (08/07/21 10:16 AM) Arm, right (08/07/21 10:14 AM) Arm, left (08/07/21 8:36 AM) Temperature Route Oral (08/07/21 8:36 AM) Dry Weight 67.0 kg (08/07/21 8:37 AM) 67.0 kg (08/07/21 8:36 AM) Weight Obtained Via Standing scale (08/07/21 8:37 AM) Standing scale (08/07/21 8:36 AM) Dry Weight Obtained Via Standing scale (08/07/21 8:37 AM) Standing scale (08/07/21 8:36 AM) Social History Social History Type Response Smoking Status Never (less than 100 in lifetime) entered on: 07/06/19 Sex
--- OUTSIDE RECORDS SUMMARY | 2022-12-06 19:35 | XMS_ITS | Continuity of Care Document ---
Author Name Unknown Organization [facility] Gastro enterology Address [address] [place] [address]- Care Team Providers Care Fly Worker Name Role Phone Jenni Marin MD Primary Care Physician [place] [facility] [place] 10/02/19 - 12/08/19 [facility]astro[facility] [address] [place] [address]- [facility] Attending Physician: Elian Mendenhall MD Referring Physician: Jenni Marin MD Allergies, [...]
--- OUTSIDE RECORDS SUMMARY | 2022-12-06 19:35 | XMS_ITS | Continuity of Care Document ---
Author Name Unknown Organization [facility] ndocr[facility] Address [address] [place] [address]- Care Team Providers Care Abnormal Psychology Teacher Name Role Phone Tania ERNANDEZ, Jenni Feng Primary Care Physician En[place] [facility] [place] Date(s): 07/09/21 - 08/08/21 [facility] [address] [place] [address]- Attending Physician: Srinivasan Sargent Admitting Physician: Admtr, Srinivasan Referring Physician: Admtr, [...] 84 tablet, 4 Refills, 07/29/21 11:46:00 EST, [facility]/pharmacy #[id number], 1 tablet By Mouth Daily, 157.6, cm, 07/09/21 15:27:00 EDT, Height, 71.3, kg, 07/09/21 15:27:00 EDT, Dry Weight Start Date: 07/29/21 Status: Ordered famotidine 20 mg oral tablet 20 mg, 1, tablet, By Mouth, 2 times a day, # 60 tablet, Refills 3, Tot. Refills 3, Maintenance, 06/02/21 11:11:00 EDT, Route to Pharmacy Electronically, [facility]/pharmacy #[id number], Partial fill upon patient request if the prescription is for a schedule II opi... Start Date: 06/02/21 Stop Date: 09/30/21 Status: Ordered levothyroxine 0.088 mg oral tablet 1 tablet = 88 mcg, By Mouth, Daily, # 90 tablet, 4 Refills, Maintenance, 07/09/21 22:34:00 EDT, Tablet, [facility]/pharmacy #[id number], Partial fill upon [...] Gm, 4 Refills, Maintenance, 06/24/21 15:19:00 EDT, [facility]/pharmacy #[id number], Partial fill upon [...] EDT, 06/24/21 15:18:00 EDT, Route to PharmacyElectronically, [facility]/pharmacy #[id number], Partial fill up... Start Date: 06/24/21 Stop [...]
--- OUTSIDE RECORDS SUMMARY | 2022-12-06 19:35 | XMS_ITS | Continuity of Care Document ---
Author Name Unknown Organization [facility] Gastro enterology Address [address] [place] [address]- Care Team Providers Care Corporate Human Resources Manager Name Role Phone Tania ERNANDEZ, Jenni Feng Primary Care Physician [phone] [facility] [place] Date(s): 11/07/19 - 11/17/19 [facility]astro[facility] [address] [place] [address]- [facility] Attending Physician: Admtr, Ar8 Admitting Physician: Admtr, Ar8 Referring Physician: Admtr, [...]
--- OUTSIDE RECORDS SUMMARY | 2022-12-06 19:35 | XMS_ITS | Continuity of Care Document ---
Author Name Unknown Organization [facility] Gastro enterology Address Unknown Care Team Providers Care Associate Professor Of Economics Name Role Phone Jenni Marin MD Primary Care Physician En[place] [facility] [place] Date(s): 06/02/21 - 07/02/21 [facility] Gastroenterology [address] [place] [id number] Allergies, Adverse Reactions, Alerts Substance Reaction Severity [...] Mouth, Daily, # 84 tablet, 0 Refills, [id number], 84, TAKE 1 TABLET BY MOUTH DAILY, 157.7, cm, 08/01/20 9:57:00 EST, Height, 68.8, kg, 11/07/19 13:20:00 EST, Dry Weight Start Date: 05/04/21 Status: Ordered famotidine 20 mg oral tablet 20 mg, 1, tablet, By Mouth, 2 times a day, # 60 tablet, Refills 3, Tot. Refills 3, Maintenance, 06/02/21 11:11:00 EDT, Route to Pharmacy Electronically, [facility]/pharmacy #[id number], Partial fill upon patient request if the prescription is for a schedule II opi... Start Date: 06/02/21 Stop Date: 09/30/21 Status: Ordered lansoprazole 15 mg oral enteric coated capsule 1 capsule = 15 mg, By Mouth, Daily, # 30 capsule, 4 Refills, Maintenance, 06/24/21 15:17:00 EDT, ECCapsule, [facility]/pharmacy #[id number], Partial fill upon patient request if the prescription is for a schedule II opioid drug., 159.5, cm, 06/24/21 14:51:00 EDT,... Start Date: 06/24/21 Stop Date: 11/21/21 Status: Ordered levothyroxine 75 mcg (0.075 mg) oral tablet 1 tablet = 75 mcg, By Mouth, Daily, 1 tablet daily, 3 month supply, # 90 tablet, 4 Refills, Maintenance, 10/14/20 9:28:00 EST, Tablet, [facility]/pharmacy #[id number], 157.7, cm, 08/01/20 9:57:00 EST, [...] Gm, 4 Refills, Maintenance, 06/24/21 15:19:00 EDT, [facility]/pharmacy #[id number], Partial fill upon patient request if the prescription is for a schedule II opioid drug., 17 Gm By Mouth Daily,x30 min,In... Start Date: 06/24/21 Stop Date: 06/24/21 Status: Ordered omeprazole 20 mg oral delayed [...] EDT Start Date: 06/08/18 Status: Ordered Senna 8.6 mg oral tablet 8.6 mg, 1, tablet, By Mouth, Daily at bedtime, 1-2 tablets daily at bedtime for 30 days, # 30 tablet, Refills 4, Tot. Refills 4, Acute, 11/21/21 15:18:00 EDT, 06/24/21 15:18:00 EDT, Route to PharmacyElectronically, [facility]/pharmacy #[id number], Partial fill up... Start Date: 06/24/21 Stop Date: 11/21/21 Status: Ordered Problem List Condition Effective Dates Status Health Status Inform ant Aiden's thyroiditis(Confirmed) Active Social History Social History Type Response Smoking Status Never (less than 100 in lifetime) entered on: 07/06/19 Sex
--- OUTSIDE RECORDS SUMMARY | 2022-12-06 19:35 | XMS_ITS | Continuity of Care Document ---
Author Name Unknown Organization [facility] Address Unknown Care Team Providers Care Vice President Talent Management Name Role Phone Tania ERNANDEZ, Jenni Feng Primary Care Physician [phone] Encounter [facility] [place] Date(s): 08/13/21 - 09/12/21 [facility] [address] [place] [id number] Allergies, Adverse Reactions, Alerts Substance Reaction [...] 84 tablet, 4 Refills, 07/29/21 11:46:00 EST, [facility]/pharmacy #[id number], 1 tablet By Mouth Daily, 157.6, cm, 07/09/21 15:27:00 EDT, Height, 71.3, kg, 07/09/21 15:27:00 EDT, Dry Weight Start Date: 07/29/21 Status: Ordered famotidine 20 mg oral tablet 20 mg, 1, tablet, By Mouth, 2 times a day, # 60 tablet, Refills 3, Tot. Refills 3, Maintenance, 06/02/21 11:11:00 EDT, Route to Pharmacy Electronically, [facility]/pharmacy #[id number], Partial fill upon patient request if the prescription is for a schedule II opi... Start Date: 06/02/21 Stop Date: 09/30/21 Status: Ordered levothyroxine 0.088 mg oral tablet 1 tablet = 88 mcg, By Mouth, Daily, # 90 tablet, 4 Refills, Maintenance, 07/09/21 22:34:00 EDT, Tablet, [facility]/pharmacy #[id number], Partial fill upon patient [...] Gm, 4 Refills, Maintenance, 06/24/21 15:19:00 EDT, [facility]/pharmacy #[id number], Partial fill upon patient request if the prescription is for a schedule II opioid drug., 17 Gm By Mouth Daily,x30 min,In... Start Date: 06/24/21 Stop Date: 06/24/21 Status: Ordered omeprazole 20 mg oral enteric coated capsule 1 capsule = 20 mg, By Mouth, 2 times a day, # 60 capsule, 3 Refills, Maintenance, 08/13/21 9:43:00 EST, [facility]/pharmacy #[id number], Partial fill upon patient [...] EDT, 06/24/21 15:18:00 EDT, Route to PharmacyElectronically, [facility]/pharmacy #[id number], Partial fill up... Start Date: 06/24/21 Stop Date: 11/21/21 Status: Ordered Problem List Condition Effective Dates Status Health Status Inform ant Aiden's thyroiditis(Confirmed) Active Social History Social History Type Response Smoking Status Never (less than 100 in lifetime) entered on: 07/06/19 Sex
--- OUTSIDE RECORDS SUMMARY | 2022-12-06 19:35 | XMS_ITS | Continuity of Care Document ---
Author Name Unknown Organization [facility] Address [address] [place] [address]- Care Team Providers Care Engineering Mgr Name Role Phone Tania ERNANDEZ, Jenni Feng Primary Care Physician [phone] Encounter [facility] Date(s): 05/04/20 - 06/03/20 [facility] [address] [place] [address] Allergies, Adverse Reactions, Alerts Substance Reaction Severity Status NKA Active Medications Docusate 0 Refills, Maintenance, 06/08/18 15:17:34 EDT Start Date: 06/08/18 Status: Ordered levothyroxine 75 mcg (0.075 mg) oral tablet 1 tablet = 75 mcg, By Mouth, Daily, 1 tablet daily, 3 month supply, # 90 tablet, 4 Refills, Maintenance, 10/08/19 10:25:00 EST, Tablet, [facility]/pharmacy #[id number], 157.9, cm, 10/08/19 10:07:00 EST, [...]
--- OUTSIDE RECORDS SUMMARY | 2022-12-06 19:35 | XMS_ITS | Continuity of Care Document ---
Author Name Unknown Organization [facility] ter Address [address] [place] [address]- Care Team Providers Care In Home Caregiver Name Role Phone Jenni Marin MD Primary Care Physician [place] [facility] [place] Date(s): 03/16/22 - 05/16/[address] [address]- Attending Physician: Walt Simpson MD Admitting Physician: Walt Simpson MD Allergies, Adverse Reactions, [...] 84 tablet, 4 Refills, 10/05/21 12:06:00 EST, [facility]/pharmacy #[id number], 1 tablet By Mouth Daily, 157.6, cm, 10/05/21 9:09:00 EST, Height, 67, kg, 08/07/21 8:37:00 EST, Dry Weight Start Date: 10/05/21 Status: Ordered famotidine 20 mg oral tablet 20 mg, 1, tablet, By Mouth, 2 times a day, # 60 tablet, Refills 3, Tot. Refills 3, Maintenance, 06/02/21 11:11:00 EDT, [id number] Partial fill upon patient request if the prescription is for a schedule II opi... Start Date: 06/02/21 Stop Date: 09/30/21 Status: Ordered levothyroxine 0.088 mg oral tablet 1 tablet = 88 mcg, By Mouth, Daily, # 90 tablet, 4 Refills, Maintenance, 07/09/21 22:34:00 EDT, Tablet, [facility]/pharmacy #[id number], Partial fill upon patient request [...] Gm, 4 Refills, Maintenance, 06/24/21 15:19:00 EDT, [facility]/pharmacy #[id number], Partial fill upon patient request if the prescription is for a schedule II opioid drug., 17 Gm By Mouth Daily,x30 min,In... Start Date: 06/24/21 Stop Date: 06/24/21 Status: Ordered omeprazole 20 mg oral enteric coated capsule 1 capsule = 20 mg, By Mouth, Daily, # 30 capsule, 3 Refills, Maintenance, 02/10/22 14:10:00 EDT, [facility]/pharmacy #[id number], Partial fill upon patient request if the prescription is for a schedule II opioid drug., 157.9, cm, 02/10/22 13:44:00 EDT, Height, 66.... Start Date: 02/10/22 Stop Date: 06/10/22 Status: Ordered Propranolol Refills 0, Maintenance, 07/09/21 [...] 30 tablet, Refills 6, Tot. Refills 6,Acute, 08/25/22 15:18:00 EST, 01/27/22 15:18:00 EDT, Route to Pharmacy Electronically, [facility]/pharmacy#[id number], Partial fill upon patient request if the pre... Start Date: 01/27/22 Stop Date: 08/25/22 Status: Ordered Problem List Condition Effective Dates Status Health Status Inform ant Aiden's thyroiditis(Confirmed) Active Social History Social History Type Response Smoking Status Never (less than 100 in lifetime) entered on: 07/06/19 Sex Care Team Personnel Name: Jenni Marin MD Address: [address] [place] [address] [facility] [place], [place] [address]
--- OUTSIDE RECORDS SUMMARY | 2022-12-06 19:35 | XMS_ITS | Continuity of Care Document ---
Author Name Unknown Organization [facility] Address [address], [address] [place] [address]- Care Team Providers Care Director Of Materials Name Role Phone Tania ERNANDEZ, Jenni Feng Primary Care Physician [phone] Encounter [facility] [place] Date(s): 10/05/21 - 11/04/21 [facility] [address] [place], [place] [address] Attending Physician: Srinivasan Sargent Admitting Physician: Srinivasan [...] Route to Pharmacy Electronically, [facility]/pharmacy #[id number], Partial fill upon patient request if the prescription is for a schedule II opi... Start Date: 06/02/21 Stop Date: 09/30/21 Status: Ordered levothyroxine 0.088 mg oral tablet 1 tablet = 88 mcg, By Mouth, Daily, # 90 tablet, 4 Refills, Maintenance, 07/09/21 22:34:00 EDT, Tablet, [facility]/pharmacy #[id number], Partial fill upon patient request if [...] Maintenance, 06/24/21 15:19:00 EDT, [facility]/pharmacy #[id number], Partial fill upon patient request if the prescription is for a schedule II opioid drug., 17 Gm By Mouth Daily,x30 min,In... Start Date: 06/24/21 Stop Date: 06/24/21 Status: Ordered omeprazole 20 mg oral enteric coated capsule 1 capsule = 20 mg, By Mouth, 2 times a day, # 60 capsule, 3 Refills, Maintenance, 08/13/21 9:43:00 EST, [facility]/pharmacy #[id number], Partial fill upon patient request if [...] EDT, Route to PharmacyElectronically, [facility]/pharmacy #[id number], Partial fill up... Start Date: 06/24/21 Stop Date: 11/21/21 Status: Ordered Problem List Condition Effective Dates Status Health Status Inform ant Aiden's thyroiditis(Confirmed) Active Social History Social History Type Response Smoking Status Never (less than 100 in lifetime) entered on: 07/06/19 Sex
--- OUTSIDE RECORDS SUMMARY | 2022-12-06 19:35 | XMS_ITS | Continuity of Care Document ---
Author Name Unknown Organization [facility] Gastro enterology Address Unknown Care Team Providers Care Tank House Operator Helper Name Role Phone Jenni Marin MD Primary Care Physician Encounter [facility] [place] Date(s): 02/10/22 - 03/12/22 [facility] Attending Physician: Srinivasan Sargent Admitting Physician: Srinivasan Sargent Referring Physician: Srinivasan Sargent Allergies, Adverse Reactions, Alerts Substance Reaction Severity [...] 84 tablet, 4 Refills, 10/05/21 12:06:00 EST, [facility]/pharmacy #[id number], 1 tablet By Mouth Daily, 157.6, cm, 10/05/21 9:09:00 EST, Height, 67, kg, 08/07/21 8:37:00 EST, Dry Weight Start Date: 10/05/21 Status: Ordered famotidine 20 mg oral tablet 20 mg, 1, tablet, By Mouth, 2 times a day, # 60 tablet, Refills 3, Tot. Refills 3, Maintenance, 06/02/21 11:11:00 EDT, Route to Pharmacy Electronically, [facility]/pharmacy #[id number], Partial fill upon patient request if the prescription is for a schedule II opi... Start Date: 06/02/21 Stop Date: 09/30/21 Status: Ordered levothyroxine 0.088 mg oral tablet 1 tablet = 88 mcg, By Mouth, Daily, # 90 tablet, 4 Refills, Maintenance, 07/09/21 22:34:00 EDT, Tablet, [facility]/pharmacy #[id number], Partial fill upon patient request [...] Gm, 4 Refills, Maintenance, 06/24/21 15:19:00 EDT, [facility]/pharmacy #[id number], Partial fill upon patient request if the prescription is for a schedule II opioid drug., 17 Gm By Mouth Daily,x30 min,In... Start Date: 06/24/21 Stop Date: 06/24/21 Status: Ordered omeprazole 20 mg oral enteric coated capsule 1 capsule = 20 mg, By Mouth, Daily, # 30 capsule, 3 Refills, Maintenance, 02/10/22 14:10:00 EDT, [facility]/pharmacy #[id number], Partial fill upon patient request [...] 01/27/22 15:18:00 EDT, Route to Pharmacy Electronically, [facility]/pharmacy#[id number], Partial fill upon patient request if the pre... Start Date: 01/27/22 Stop Date: 08/25/22 Status: Ordered Problem List Condition Effective Dates Status Health Status Inform ant Aiden's thyroiditis(Confirmed) Active Social History Social History Type Response Smoking Status Never (less than 100 in lifetime) entered on: 07/06/19 Sex
--- OUTSIDE RECORDS SUMMARY | 2022-12-06 19:35 | XMS_ITS | Continuity of Care Document ---
Author Name Unknown Organization [facility] Address [address] [place] [address]- Care Team Providers Care Cylinder Sander Operator Name Role Phone Tania ERNANDEZ, Jenni Feng Primary Care Physician Encounter [facility] [place] Date(s): 03/20/20 - 04/19/20 [facility] [address] [place] [address]- [facility] Attending Physician: Admtr, Srinivasan Admitting Physician: Admtr, Ar8 Referring Physician: Admtr, [...]
--- OUTSIDE RECORDS SUMMARY | 2022-12-06 19:36 | XMS_ITS | Continuity of Care Document ---
Author Name Unknown Organization [facility] Address [address], [address] [place] [address]- Care Team Providers Care Experimental Physicist Name Role Phone Tania ERNANDEZ, Jenni Feng Primary Care Physician [phone] [place] [facility] [place] Date(s): 07/27/21 - 08/26/21 [facility] [address], [address] [place] [address]- Allergies, Adverse Reactions, Alerts Substance Reaction Severity [...] 84 tablet, 4 Refills, 07/29/21 11:46:00 EST, [facility]/pharmacy #[id number], 1 tablet By Mouth Daily, 157.6, cm, 07/09/21 15:27:00 EDT, Height, 71.3, kg, 07/09/21 15:27:00 EDT, Dry Weight Start Date: 07/29/21 Status: Ordered famotidine 20 mg oral tablet 20 mg, 1, tablet, By Mouth, 2 times a day, # 60 tablet, Refills 3, Tot. Refills 3, Maintenance, 06/02/21 11:11:00 EDT, Route to Pharmacy Electronically, [facility]/pharmacy #[id number], Partial fill upon patient request if the prescription is for a schedule II opi... Start Date: 06/02/21 Stop Date: 09/30/21 Status: Ordered levothyroxine 0.088 mg oral tablet 1 tablet = 88 mcg, By Mouth, Daily, # 90 tablet, 4 Refills, Maintenance, 07/09/21 22:34:00 EDT, Tablet, [facility]/pharmacy #[id number], Partial fill upon patient request [...] 4 Refills, Maintenance, 06/24/21 15:19:00 EDT, [facility]/pharmacy #[id number], Partial fill upon patient request if the prescription is for a schedule II opioid drug., 17 Gm By Mouth Daily,x30 min,In... Start Date: 06/24/21 Stop Date: 06/24/21 Status: Ordered omeprazole 20 mg oral enteric coated capsule 1 capsule = 20 mg, By Mouth, 2 times a day, # 60 capsule, 3 Refills, Maintenance, 08/13/21 9:43:00 EST, [facility]/pharmacy #[id number], Partial fill upon patient request [...] 06/24/21 15:18:00 EDT, Route to PharmacyElectronically, [facility]/pharmacy #[id number], Partial fill up... Start Date: 06/24/21 Stop Date: 11/21/21 Status: Ordered Problem List Condition Effective Dates Status Health Status Inform ant Aiden's thyroiditis(Confirmed) Active Social History Social History Type Response Smoking Status Never (less than 100 in lifetime) entered on: 07/06/19 Sex
--- OUTSIDE RECORDS SUMMARY | 2022-12-06 19:36 | XMS_ITS | Continuity of Care Document ---
Author Name Unknown Organization [facility] G[facility] enter[facility] Address [address] [place] [address]- Care Team Providers Care Charge Operator Name Role Phone Tania ERNANDEZ, Jenni Feng Primary Care Physician [phone] Encounter [facility] [place] Date(s): 04/07/20 - 05/07/20 [facility] [address] [place] [address]- [facility] Attending Physician: Srinivasan Sargent Admitting Physician: Admtr, ArKristi Referring Physician: Admtr, Ar8 Allergies, Adverse Reactions, Alerts Substance Reaction Severity Status NKA Active Medications Docusate 0 Refills, Maintenance, 06/08/18 15:17:34 EDT Start Date: 06/08/18 Status: Ordered levothyroxine 75 mcg (0.075 mg) oral tablet 1 tablet = 75 mcg, By Mouth, Daily, 1 tablet daily, 3 month supply, # 90 tablet, 4 Refills, Maintenance, 10/08/19 10:25:00 EST, Tablet, [facility]/pharmacy #[id number], 157.9, cm, 10/08/19 10:07:00 EST, Height, [...]
--- OUTSIDE RECORDS SUMMARY | 2022-12-06 19:36 | XMS_ITS | Continuity of Care Document ---
Author Name Unknown Organization [facility] G[facility] enter[facility] Address Unknown Care Team Providers Care General Surgery Physician Assistant Name Role Phone Jenni Marin MD Primary Care Physician Encounter [facility] [place] Date(s): 01/27/22 - 02/26/22 [facility] [address] [place] [id number] Allergies, Adverse Reactions, Alerts [...] 84 tablet, 4 Refills, 10/05/21 12:06:00 EST, [facility]/pharmacy #[id number], 1 tablet By [...] capsule, 3 Refills, Maintenance, 02/10/22 14:10:00 EDT, [facility]/pharmacy #[id number], Partial [...] 01/27/22 15:18:00 EDT, Route to Pharmacy Electronically, [facility]/pharmacy#[id number], Partial fill upon patient request if the pre... Start Date: 01/27/22 Stop Date: 08/25/22 Status: Ordered Problem List Condition Effective Dates Status Health Status Inform ant Aiden's thyroiditis(Confirmed) Active Social History Social History Type Response Smoking Status Never (less than 100 in lifetime) entered on: 07/06/19 Sex
--- OUTSIDE RECORDS SUMMARY | 2022-12-06 19:36 | XMS_ITS | Continuity of Care Document ---
Author Name Unknown Organization [facility] G[facility] enter[facility] Address [address] [place] [address]- Care Team Providers Care Varnishing Unit Operator Name Role Phone Tania ERNANDEZ, Jenni Feng Primary Care Physician [place] [facility] [place]s): 10/06/22 - 11/05/22 [facility] [address] [place] [id number] Allergies, Adverse Reactions, Alerts [...] 11:11:00 EDT, [id number] Partial fill upon patient request if the prescription is for a schedule II opi... Start Date: 06/02/21 Stop Date: 09/30/21 Status: Ordered levothyroxine 0.088 mg oral tablet 1 tablet = 88 mcg, By Mouth, Daily, # 90 tablet, 4 Refills, Maintenance, 07/27/22 10:02:00 EST, Tablet, [facility]/pharmacy #[id number], Partial fill upon [...] Gm, 4 Refills, Maintenance, 08/09/22 15:14:00 EST, [facility]/pharmacy #[id number], Partial fill upon patient request if the prescription is for a schedule II opioid drug., 17 Gm By Mouth Daily,x30 min,In... Start Date: 08/09/22 Stop Date: 08/09/22 Status: Ordered omeprazole 20 mg oral enteric coated capsule 1 capsule = 20 mg, By Mouth, Daily, # 30 capsule, 3 Refills, Maintenance, 08/09/22 15:14:00 EST, [facility]/pharmacy #[id number], Partial fill upon [...] 08/09/22 15:14:00 EST, Route to Pharmacy Electronically, [facility]/pharmacy#[id number], Partial fill upon patient request if the [...] MD Member Role: PCP Address: Address: [address] [facility] [place] [address]- Care Team Related Persons Name: ANTONIA GENTILE Address: home [address] [place] [address] Name: LIZA GENTILE Address: home [address] [place] [address]
--- OUTSIDE RECORDS SUMMARY | 2022-12-06 19:36 | XMS_ITS | Continuity of Care Document ---
Author Name Unknown Organization [facility] Address [address], [address] [place] [address]- Care Team Providers Care Office Manager Receptionist Name Role Phone Jenni Marin MD Primary Care Physician Encounter [facility] [place] Date(s): 10/05/21 - 10/12/21 [facility] [address] [place] [address]- Attending Physician: Catrachita Holder MD Referring Physician: [...] 06/02/21 11:11:00 EDT, Route to Pharmacy Electronically, [facility]/pharmacy #[id number], Partial fill upon patient request if the prescription is for a schedule II opi... Start Date: 06/02/21 Stop Date: 09/30/21 Status: Ordered levothyroxine 0.088 mg oral tablet 1 tablet = 88 mcg, By Mouth, Daily, # 90 tablet, 4 Refills, Maintenance, 07/09/21 22:34:00 EDT, Tablet, [facility]/pharmacy #[id number], Partial fill upon [...] Gm, 4 Refills, Maintenance, 06/24/21 15:19:00 EDT, [facility]/pharmacy #[id number], Partial fill upon patient request if the prescription is for a schedule II opioid drug., 17 Gm By Mouth Daily,x30 min,In... Start Date: 06/24/21 Stop Date: 06/24/21 Status: Ordered omeprazole 20 mg oral enteric coated capsule 1 capsule = 20 mg, By Mouth, 2 times a day, # 60 capsule, 3 Refills, Maintenance, 08/13/21 9:43:00 EST, [facility]/pharmacy #[id number], Partial fill upon patient request if the prescription is for a schedule II opioid drug., 157.6, cm, 07/09/21 15:27:00 EDT, Heig... Start Date: 08/13/21 Stop Date: 4/8/22 Status: Ordered Propranolol Refills 0, Maintenance, 07/09/21 [...] EDT, 06/24/21 15:18:00 EDT, Route to PharmacyElectronically, [facility]/pharmacy #[id number], Partial fill up... Start Date: 06/24/21 Stop Date: 11/21/21 Status: Ordered Problem List Condition Effective Dates Status Health Status Inform ant Aiden's thyroiditis(Confirmed) Active Vital Signs Most recent to oldest [Reference Range]: 1 Height 157.6 cm (10/05/21 9:09 AM) Weight 66.81 kg (10/05/21 9:09 AM) Body Mass Index [18.5-24.99] 26.9 *H* (10/05/21 9:09 AM) Blood Pressure [90-138/55-84 mm Hg] 90/7 0mm Hg (10/05/21 9:09 AM) Blood pressure sites Arm, left (10/05/21 9:09 AM) Weight Obtained Via Standing scale (10/05/21 9:09 AM) Social History Social History Type Response Smoking Status Never (less than 100 in lifetime) entered on: 07/06/19 Sex
--- OUTSIDE RECORDS SUMMARY | 2022-12-06 19:36 | XMS_ITS | Continuity of Care Document ---
Author Name Unknown Organization [facility] Address Unknown Care Team Providers Care Truck Chauffeur Name Role Phone Tania ERNANDEZ, Jenni Feng Primary Care Physician Encounter [facility] [place] Date(s): 07/07/21 - 08/06/21 [facility] [address] [place] [id number] Allergies, Adverse Reactions, Alerts Substance Reaction Severity [...] 06/02/21 11:11:00 EDT, Route to Pharmacy Electronically, [facility]/pharmacy #[id number], Partial fill upon patient request if the prescription is for a schedule II opi... Start Date: 06/02/21 Stop Date: 09/30/21 Status: Ordered levothyroxine 0.088 mg oral tablet 1 tablet = 88 mcg, By Mouth, Daily, # 90 tablet, 4 Refills, Maintenance, 07/09/21 22:34:00 EDT, Tablet, [facility]/pharmacy #[id number], Partial fill upon patient [...] Gm, 4 Refills, Maintenance, 06/24/21 15:19:00 EDT, [facility]/pharmacy #[id number], Partial fill upon patient [...] EDT, 06/24/21 15:18:00 EDT, Route to PharmacyElectronically, [facility]/pharmacy #[id number], Partial fill up... Start Date: 06/24/21 Stop Date: 11/21/21 Status: Ordered Problem List Condition Effective Dates Status Health Status Inform ant Aiden's thyroiditis(Confirmed) Active Social History Social History Type Response Smoking Status Never (less than 100 in lifetime) entered on: 07/06/19 Sex
--- OUTSIDE RECORDS SUMMARY | 2022-12-06 19:36 | XMS_ITS | Continuity of Care Document ---
Author Name Unknown Organization [facility] G[facility] enter[facility] Address [address] [place] [address]- Care Team Providers Care Job Honer Name Role Phone Jenni Marin MD Primary Care Physician [phone] Encounter [facility] [place] Date(s): 03/20/20 - 05/07/20 [facility] [address] [place] [address] [facility] Attending Physician: Calvin ERNANDEZ, Walt Canas Referring Physician: Jenni Marin MD Allergies, Adverse Reactions, Alerts Substance Reaction Severity Status NKA Active Medications Docusate 0 Refills, Maintenance, 06/08/18 15:17:34 EDT Start Date: 06/08/18 Status: Ordered levothyroxine 75 mcg (0.075 mg) oral tablet 1 tablet = 75 mcg, By Mouth, Daily, 1 tablet daily, 3 month supply, # 90 tablet, 4 Refills, Maintenance, 10/08/19 10:25:00 EST, Tablet, [facility]/pharmacy #[id number], 157.9, cm, 10/08/19 10:07:00 EST, Height, [...]
--- OUTSIDE RECORDS SUMMARY | 2022-12-06 19:36 | XMS_ITS | Continuity of Care Document ---
Author Name Unknown Organization [facility] Address [address] [place] [address]- Care Team Providers Care Processing Operator Name Role Phone Tania ERNANDEZ, Jenni Feng Primary Care Physician [phone] [id number] - 08/31/20 [facility] [address] [place] [address]- Attending Physician: Admtr, [id number] Admitting Physician: Admtr, [...] 4 Refills, Maintenance, 10/08/19 10:25:00 EST, Tablet, [facility]/pharmacy #[id number], 157.9, cm, 10/08/19 10:07:00 EST, [...] 0 Refills, Maintenance, 08/01/20 18:17:00 EST, Tablet, [facility]/pharmacy #[id number], Partial fill upon patient request, 1 tablet By Mouth Daily, 157.7, cm, 08/01/20 9:57:00 EST, Height, 68.8, kg, 11/07/19 13:20:00 EST, Start Date: 08/01/20 Status: Ordered Problem List Condition Effective Dates Status Health Status Inform ant Aiden's thyroiditis(Confirmed) Active Social History Social History Type Response Smoking Status Never (less than 100 in lifetime) entered on: 07/06/19 Sex
[2022-12-06] MEDS: Lidocaine HCl 1 % MPF 5 ML VIAL SUBCUT (20:19)
== END 2022-12-06 20:23 | disposition home or self-care (01) ==
PROVIDERS: Emergency Provider Emergency Medicine; PCP Family Medicine
DX: T16.2XXA Foreign body in left ear, initial encounter (principal); M79.5 Residual foreign body in soft tissue; X58.XXXA Exposure to other specified factors, initial encounter; Y93.9 Activity, unspecified; Y92.9 Unspecified place or not applicable; Y99.9 Unspecified external cause status
CPT/HCPCS: 69200; 99282; 99284

== ENCOUNTER 2024-08-17 12:45 | Emergency (ER) | payer OTHER, SELFPAY ==
[2024-08-17 12:53] VITALS: PULSE 136; RESP 20; O2SAT 98; BMI 25.3
[2024-08-17 13:50] LABS: MANUAL DIFF FLAG NO
[2024-08-17 13:51] LABS: Basophils Percent Auto 0.2 % (0-2); Eosinophils Absolute Auto 0.1 X10*3/uL (0.0-0.4); Eosinophils Percent Auto 0.5 % (0-4); Hematocrit 41.2 % (37.0-47.0); Hemoglobin 14.6 g/dl (12.0-16.0); Imm Gran Abs Auto 0.03 X10*3/uL (0.00-0.03); Imm Gran Pct Auto 0.3 % (0.0-0.4); Lymphocytes Absolute Auto 0.6 X10*3/uL (1.2-4.9); Mean Corpuscular HGB Conc 35.4 g/dl (31.0-35.0); Mean Corpuscular Hemoglobin 31.7 pg (27.0-33.0); Mean Corpuscular Volume 89.4 fL (80.0-98.0); Mean Platelet Volume 9.3 fL (9.4-12.3); Monocytes Absolute Auto 0.5 X10*3/uL (0.1-1.2); Platelet Count 202 X10*3/uL (160-400); Red Blood Count 4.61 X10*6/uL (4.20-5.50); Red Cell Distribution Width 12.7 % (11.0-16.0); White Blood Count 10.3 X10*3/uL (4.8-10.8)
[2024-08-17 14:06] LABS: Alanine Aminotransferase 33 U/L (0-31); Albumin Level 4.6 g/dL (3.5-5.0); Alkaline Phosphatase 68 U/L (39-117); Anion Gap 12 (12-20); Aspartate Amino Transferase 29 U/L (5-31); Bilirubin Total 0.8 mg/dL (0.0-1.0); Blood Urea Nitrogen 13 mg/dL (9-16); Calcium 9.2 mg/dL (8.4-10.2); Carbon Dioxide 27 mmol/L (22-29); Chloride 104 mmol/L (96-108); Creatinine Clr Calc Pharmacy 106.2; Estimated Glomerular Filt Rate > 60; Glucose Random 117 mg/dL (60-115); Potassium 3.6 mmol/L (3.3-5.1); Sodium 139 mmol/L (135-145); Total Protein 7.8 g/dL (6.5-8.0)
--- NOTE | 2024-08-17 14:22 | ED.GENADULT ---
[facility] - General Adult General Chief complaint: Fall Stated complaint: SEIZURE, COMING FROM [facility], FROM PER EMS Time Seen by Provider: 08/17/24 12:46 Source: other History of Present Illness ED Provider: Jailene POTTER narrative: 24-year-old female with history of intellectual delay, no history of seizures, however collateral information provided by the nursing staff states that she has had prior seizure event related to her risperidone. Patient was playing basketball at the [facility] with the group home counselor when the patient became excited while playing basketball and was noted to stiffen up and then fall backwards striking the back of her head and the worker noted that patient had some seizure-like activity. Related Data Previous Rx's ?Medication ?Instructions ?Recorded lorazepam 1 mg tablet (Ativan) 1 mg PO DAILY PRN seizure activity 07/05/21 #10 tabs Allergies Allergy/AdvReac Type Severity Reaction Status Date / Time No Known Allergies Allergy Verified 08/17/24 12:58 Review of Systems Review of Systems: Pertinent positives and negatives as stated in HPI [facility] Past Medical History Source: nursing notes reviewed Medical History Cerebral palsy Autism Development disorder, mixed GERD (gastroesophageal reflux disease) Social History Social History Alcohol intake: never Patient Tobacco Use Status: Never used Tobacco Advance Directives: No Advance Directives Information Provided: Yes Physical Exam ED Vital Signs: Vital Signs - 24 hr 08/17/24 12:53 Pulse Rate 136 H Respiratory Rate 20 Pulse Oximetry 98 Oxygen Delivery Method Room Air BMI result Body Mass Index 25.3 VITAL SIGNS: Reviewed. GENERAL: Well developed, well nourished, in no acute distress. HEAD: Normocephalic/atraumatic EYES: PERRLA, EOMI EARS: Ext canals without abnormality NOSE: Nares patent bilateral OROPHARYNX: no oral lesions noted, posterior pharynx clear NECK: Supple, no adenopathy, no midline cervical spine tenderness to palpation or step-offs noted LUNGS: Normal breath sounds. No adventitious sounds or accessory muscle use. SpO2<98> CARDIOVASCULAR: Regular rate and rhythm without noted murmurs ABDOMEN: Soft, non-tender, non-distended with bowel sounds. PELVIS: stable, nontender MUSCULOSKELETAL: No tenderness, deformities, or effusions noted on gross inspection. EXTREMITIES: No cyanosis, clubbing or edema. SKIN: Inspection of the skin reveals no rashes NEUROLOGIC: Alert and oriented x 4. Strength and sensation to light touch were grossly intact x 4. Medical Decision Making Medical Decision Making [facility] Narrative: 24-year-old female with history and clinical presentation, likely interaction with the risperidone, on full clinical exam no injuries are noted, there is full range of motion at all joints, there is no neck pain or chest wall pain, patient moves all extremities without difficulty and denies any pain. I reviewed and interpreted all investigations and there is no evidence of infectious leukocytosis, anemia, or thrombocytopenia. Chemistry indices do not demonstrate any BHARGAV /electrolyte or liver enzyme derangements. Patient is otherwise well appearing, she has had something to eat and drink without any observed difficulties and is otherwise discharged back to the facility with recommendations that the supervising provider re-evaluate the patient in the next 24-48 hours. Differential Diagnosis Differential Diagnoses: The differential diagnosis associated with the presentation includes Admission/Observation Consideration of admission/observation: Escalation of care including admission/observation considered This was considered but patient does not meet inpatient level of care Lab Data [facility] Lab Attestation statement: I reviewed the patient's lab results. see above 08/17/24 13:46 08/17/24 13:46 Labs: Lab Results 08/17/24 Range/Units 13:46 WBC 10.3 (4.8-10.8) X10*3/uL RBC 4.61 (4.20-5.50) X10*6/uL Hgb 14.6 (12.0-16.0) g/dl Hct 41.2 (37.0-47.0) % MCV 89.4 (80.0-98.0) fL MCH 31.7 (27.0-33.0) pg MCHC 35.4 H (31.0-35.0) g/dl RDW 12.7 (11.0-16.0) % Plt Count 202 (160-400) X10*3/uL MPV 9.3 L (9.4-12.3) fL Immature Gran % (Auto) 0.3 (0.0-0.4) % Neut % (Auto) 88.0 H (45-73) % Lymph % (Auto) 6.0 L (20-40) % [place] % (Auto) 5.0 (2-11) % Eos % (Auto) 0.5 (0-4) % Baso % (Auto) 0.2 (0-2) % Lymph # (Auto) 0.6 L (1.2-4.9) X10*3/uL [place] # (Auto) 0.5 (0.1-1.2) X10*3/uL Eos # (Auto) 0.1 (0.0-0.4) X10*3/uL Baso # (Auto) 0.0 (0.0-0.2) X10*3/uL Abs Immat Gran (auto) 0.03 (0.00-0.03) X10*3/uL Absolute Neuts (auto) 9.0 H (2.0-8.3) x10*3/uL Absolute Nucleated RBC 0.000 (0.0-0.012) X10*3/uL Nucleated RBC % (auto) 0.0 (0.0-0.2) /100WBC Sodium 139 (135-145) mmol/L Potassium 3.6 (3.3-5.1) mmol/L Chloride 104 (96-108) mmol/L Carbon Dioxide 27 (22-29) mmol/L Anion Gap 12 (12-20) BUN 13 (9-16) mg/dL Creatinine 0.81 (0.5-1.4) mg/dL Estim Creat Clear Calc 106.2 Estimated GFR > 60 Random Glucose 117 H (60-115) mg/dL Calcium 9.2 (8.4-10.2) mg/dL Total Bilirubin 0.8 (0.0-1.0) mg/dL AST 29 (5-31) U/L ALT 33 H (0-31) U/L Alkaline Phosphatase 68 (39-117) U/L Total Protein 7.8 (6.5-8.0) g/dL Albumin 4.6 (3.5-5.0) g/dL Discharge Plan Discharge Clinical Impression: Seizure, Medication side effect Patient Disposition: Xfer Other Instructions: Nonepileptic Seizures (ED), Adverse Drug Reaction (ED) Additional Instructions: Recommend re-evaluation of patient's current medication regimen to limit any possible medication reactions that may have predisposed the patient to seizure-like activity. Supervising provider should re-evaluate the patient within the next 24-48 hours and assessment at that time should consider possible referral to Neurology. Workup today was reassuring and do not hesitate to return to the emergency room should you have any concerns or recurrence of seizures. Prescriptions: No Action lorazepam [Ativan] 1 mg tablet 1 mg PO DAILY PRN (Reason: seizure activity) Qty: 10 0RF Referrals: Jenni Marin MD [Primary Care Provider] - Print Language: [place]
[2024-08-17 14:46] VITALS: BP 123/78; PULSE 132; RESP 20; TEMP 36.2; O2SAT 98
== END 2024-08-17 14:47 | disposition other institution (70) ==
PROVIDERS: Emergency Provider Student in an Organized Health Care Education/Training Program; PCP Pediatrics
DX: R56.9 Unspecified convulsions (principal); T43.595A Adverse effect of other antipsychotics and neuroleptics, initial encounter; Y92.9 Unspecified place or not applicable
CPT/HCPCS: 36415; 80053; 85025; 99283

== ENCOUNTER 2025-04-28 09:34 | Emergency (ER) | payer OTHER, SELFPAY ==
[2025-04-28 09:44] VITALS: BP 130/90; PULSE 78; O2SAT 98; BMI 27.4
[2025-04-28 11:22] LABS: Appearance Urine Clear; Glucose Urine UA Negative (Negative); PH 6.0 (5.0-9.0); Specific Gravity - Urine 1.015 (1.005-1.025); UMIC TRIGGER UACC YES
[2025-04-28 11:35] LABS: Cannabinoid Screen Urine Not Detected (Not Detect)
[2025-04-28 11:48] LABS: MANUAL DIFF FLAG NO
[2025-04-28 11:49] LABS: Hematocrit 42.1 % (37.0-47.0); Hemoglobin 14.6 g/dl (12.0-16.0); Imm Gran Abs Auto 0.01 X10*3/uL (0.00-0.03); Imm Gran Pct Auto 0.2 % (0.0-0.4); Lymphocytes Absolute Auto 1.7 X10*3/uL (1.2-4.9); Mean Corpuscular HGB Conc 34.7 g/dl (31.0-35.0); Mean Corpuscular Hemoglobin 31.8 pg (27.0-33.0); Mean Corpuscular Volume 91.7 fL (80.0-98.0); NRBC Abs Auto 0.000 X10*3/uL (0.0-0.012); NRBC Pct Auto 0.0 /100WBC (0.0-0.2); Platelet Count 225 X10*3/uL (160-400); Red Blood Count 4.59 X10*6/uL (4.20-5.50); White Blood Count 6.4 X10*3/uL (4.8-10.8)
[2025-04-28 11:54] VITALS: BP 114/73; PULSE 90; RESP 16; TEMP 36.9; O2SAT 99
[2025-04-28 12:25] LABS: Alanine Aminotransferase 24 U/L (0-31); Albumin Level 5.0 g/dL (3.5-5.0); Alkaline Phosphatase 76 U/L (39-117); Anion Gap 17 (12-20); Aspartate Amino Transferase 28 U/L (5-31); Blood Urea Nitrogen 11 mg/dL (9-16); Calcium 9.7 mg/dL (8.4-10.2); Carbon Dioxide 24 mmol/L (22-29); Chloride 106 mmol/L (96-108); Creatinine Clr Calc Pharmacy 103.6; Estimated Glomerular Filt Rate > 60; Magnesium 1.9 mg/dL (1.6-2.6); Potassium 3.6 mmol/L (3.3-5.1); Sodium 143 mmol/L (135-145); Total Protein 8.2 g/dL (6.5-8.0)
--- NOTE | 2025-04-28 12:38 | ED.GENADULT ---
HPI - General Adult General Chief complaint: Behavioral Concerns Stated complaint: aggressive [facility] Time Seen by Provider: 04/28/25 09:40 Source: patient and EMS Mode of arrival: EMS Limitations: no limitations History of Present Illness ED Provider: YAMILET Espino HPI narrative: This is a 24-year-old female presenting from [facility] via ambulance with a aggressive behavior. According to EMS patient was biting, hitting, spitting and being very hostile towards staff members. Per staff members at the [facility] patient is deregulated and they would like patient to have a crisis evaluation. Offers no medical complaints at this time. Poor historian. cut in worker at the bedside reports she wanted to escape the [facility] today. Related Data Home Medications ?Medication ?Instructions ?Recorded ?Confirmed acetaminophen 325 mg tablet 650 mg PO Q6H PRN Pain (Scale 04/28/25 04/28/25 (Tylenol) Score 1-3) cetirizine 10 mg tablet (Zyrtec) 10 mg PO DAILY 04/28/25 04/28/25 clonidine HCl 0.2 mg tablet 0.2 mg PO BEDTIME 04/28/25 04/28/25 famotidine 20 mg tablet 20 mg PO DAILY 04/28/25 04/28/25 fluoxetine 10 mg tablet 10 mg PO DAILY 04/28/25 04/28/25 fluoxetine 20 mg tablet 20 mg PO DAILY 04/28/25 04/28/25 guaifenesin 200 mg tablet 200 mg PO Q4H PRN Cough 04/28/25 04/28/25 levonorgestrel-ethinyl estradiol 1 tab PO DAILY 04/28/25 04/28/25 0.1 mg-20 mcg tablet (Aviane) levothyroxine 112 mcg tablet 112 mcg PO DAILY 04/28/25 04/28/25 lorazepam 0.5 mg tablet 0.5 mg PO DAILY PRN Agitation 04/28/25 04/28/25 lorazepam 1 mg tablet (Ativan) 1 mg PO DAILY@1700 04/28/25 04/28/25 melatonin 10 mg tablet 10 mg PO BEDTIME 04/28/25 04/28/25 polyethylene glycol 3350 17 gram 17 g PO DAILY PRN Constipation 04/28/25 04/28/25 oral powder packet (Gavilax) risperidone 0.5 mg tablet 0.5 mg PO BID PRN Agitation 04/28/25 04/28/25 (Risperdal) risperidone 1 mg tablet 1 mg PO DAILY 04/28/25 04/28/25 risperidone 2 mg tablet 2 mg PO DAILY@1700 04/28/25 04/28/25 sennosides 8.6 mg-docusate sodium 2 tab-cap PO BID 04/28/25 04/28/25 50 mg capsule Allergies Allergy/AdvReac Type Severity Reaction Status Date / Time No Known Allergies Allergy Verified 04/28/25 09:45 Review of Systems Review of Systems: Yes all other systems are reviewed and are negative [facility] Past Medical History Medical History Cerebral palsy Autism Development disorder, mixed GERD (gastroesophageal reflux disease) Social History Social History Alcohol intake: never Patient Tobacco Use Status: Never used Tobacco Smoked in Last 30 Days: No Use of substances other than those prescribed or required for medical reasons: No Advance Directives: No Advance Directives Information Provided: No Physical Exam ED Exam Exam: Appearance: Alert.? Oriented X3.? No acute distress.? Head: Normocephalic, atraumatic, no step-offs or deformities Eyes: Pupils equal, round and reactive to light.? ENT: Pharynx normal.? Neck: Normal inspection.? Neck supple.? CVS: Normal heart rate and rhythm.? Pulses normal.? Respiratory: No respiratory distress.? Breath sounds normal.? Abdomen: Soft and nontender.? Skin: Skin warm and dry.? Normal skin color.? Normal skin turgor.? Extremities: No lower extremity edema.? No calf ttp. 5/5 strength to bilateral upper and lower extremities Back: No midline tenderness, no C-spine tenderness, full range of motion, no CVA tenderness bilaterally Neuro: Oriented X 3.? No motor deficit.? No sensory deficit. CN 2-12 intact Vital Signs: Vital Signs - 24 hr 04/28/25 11:54 Temperature 98.4 F Pulse Rate 90 Respiratory Rate 16 Blood Pressure 114/73 Pulse Oximetry 99 Oxygen Delivery Method Room Air BMI result Body Mass Index 27.4 Vital signs stable Course Reevaluation(s) Reevaluation #1: CBC unremarkable. Chemistry with no acute findings needing intervention. UA without infection. Urine tox negative. Ethanol negative Time: 14:47 Reevaluation #2: Time patient will be placed into observation patient will be staying overnight and she will be a DDU bed search. Time: 14:48 Medical Decision Making Medical Decision Making [facility] Narrative: 1238 74-year-old female presents with aggressive behavior from [facility] Physical exam benign History and physical exam concerning for aggression versus bipolar versus schizophrenia. Unlikely metabolic derangements encephalitis. Plan medical clearance evaluation by care team Differential Diagnosis Differential Diagnoses: The differential diagnosis associated with the presentation includes (History and physical exam concerning for aggression versus bipolar versus schizophrenia. Unlikely metabolic derangements encephalitis.) Admission/Observation Consideration of admission/observation: Escalation of care including admission/observation considered Lab Data [facility] Lab Attestation statement: I reviewed the patient's lab results. 04/28/25 11:43 04/28/25 11:43 Labs: Lab Results 04/28/25 04/28/25 Range/Units 11:10 11:43 WBC 6.4 (4.8-10.8) X10*3/uL RBC 4.59 (4.20-5.50) X10*6/uL Hgb 14.6 (12.0-16.0) g/dl Hct 42.1 (37.0-47.0) % MCV 91.7 (80.0-98.0) fL MCH 31.8 (27.0-33.0) pg MCHC 34.7 (31.0-35.0) g/dl RDW 12.8 (11.0-16.0) % Plt Count 225 (160-400) X10*3/uL MPV 9.7 (9.4-12.3) fL Immature Gran % (Auto) 0.2 (0.0-0.4) % Neut % (Auto) 64.0 (45-73) % Lymph % (Auto) 26.8 (20-40) % [place] % (Auto) 5.8 (2-11) % Eos % (Auto) 2.3 (0-4) % Baso % (Auto) 0.9 (0-2) % Lymph # (Auto) 1.7 (1.2-4.9) X10*3/uL [place] # (Auto) 0.4 (0.1-1.2) X10*3/uL Eos # (Auto) 0.2 (0.0-0.4) X10*3/uL Baso # (Auto) 0.1 (0.0-0.2) X10*3/uL Abs Immat Gran (auto) 0.01 (0.00-0.03) X10*3/uL Absolute Neuts (auto) 4.1 (2.0-8.3) x10*3/uL Absolute Nucleated RBC 0.000 (0.0-0.012) X10*3/uL Nucleated RBC % (auto) 0.0 (0.0-0.2) /100WBC Sodium 143 (135-145) mmol/L Potassium 3.6 (3.3-5.1) mmol/L Chloride 106 (96-108) mmol/L Carbon Dioxide 24 (22-29) mmol/L Anion Gap 17 (12-20) BUN 11 (9-16) mg/dL Creatinine 0.83 (0.5-1.4) mg/dL Estim Creat Clear Calc 103.6 Estimated GFR > 60 Random Glucose 98 (60-115) mg/dL Calcium 9.7 (8.4-10.2) mg/dL Magnesium 1.9 (1.6-2.6) mg/dL Total Bilirubin 0.3 (0.0-1.0) mg/dL AST 28 (5-31) U/L ALT 24 (0-31) U/L Alkaline Phosphatase 76 (39-117) U/L Total Protein 8.2 H (6.5-8.0) g/dL Albumin 5.0 (3.5-5.0) g/dL Urine Color Yellow Urine Appearance Clear Urine pH 6.0 (5.0-9.0) Ur Specific [place] 1.015 (1.005-1.025) Urine Protein Negative (Neg-Trace) mg/dL Urine Glucose (UA) Negative (Negative) mg/dL Urine Ketones Negative (Negative) mg/dL Urine Blood Moderate (2+) H (Negative) Urine Nitrite Negative (Negative) Ur Leukocyte Esterase Trace H (Negative) Urine RBC 11-20 H (0-2) /HPF Urine WBC 0-5 (0-5) /HPF Ur Squamous Epith Cells 0-2 (0-2) /HPF Urine Bacteria None Seen (None Seen) Hyaline Casts 0-2 (0-2) /LPF Urine Opiates Screen Not Detected (Not Detect) Ur Buprenorphine Scrn Not Detected (Not Detect) ng/mL Ur Oxycodone Screen Not Detected (Not Detect) ng/mL Urine Methadone Screen Not Detected (Not Detect) ng/mL Urine Fentanyl Screen Not Detected (Not Detect) Ur Barbiturates Screen Not Detected (Not Detect) Ur Phencyclidine Scrn Not Detected (Not Detect) Ur Amphetamines Screen Not Detected (Not Detect) U Benzodiazepines Scrn Not Detected (Not Detect) Urine Cocaine Screen Not Detected (Not Detect) U Marijuana (THC) Screen Not Detected (Not Detect) Ethyl Alcohol < 10 mg/dL External Record Review External record reviewed: Inpatient record, Office record, Outpatient record, Prior outpatient labs, Prior outpatient radiology and Primary care record Critical Care Time Critical Care Time Critical Care Time: No Discharge Plan Discharge Clinical Impression: Acute psychosis, Aggressive behavior Prescriptions: No Action acetaminophen [Tylenol] 325 mg Tablet 650 mg PO Q6H PRN (Reason: Pain (Scale Score 1-3)) cetirizine [Zyrtec] 10 mg Tablet 10 mg PO DAILY guaifenesin 200 mg Tablet 200 mg PO Q4H PRN (Reason: Cough) famotidine 20 mg Tablet 20 mg PO DAILY levothyroxine 112 mcg Tablet 112 mcg PO DAILY sennosides-docusate sodium 8.6-50 mg Capsule 2 tab-cap PO BID polyethylene glycol 3350 [Gavilax] 17 gram Powder In Packet 17 g PO DAILY PRN (Reason: Constipation) levonorgestrel-ethinyl estrad [Aviane] 0.1-20 mg-mcg Tablet 1 tab PO DAILY Rx Instructions: Start taking Tuesday after period ends fluoxetine 10 mg Tablet 10 mg PO DAILY Rx Instructions: take with 20mg tablet risperidone 2 mg Tablet 2 mg PO DAILY@1700 clonidine HCl 0.2 mg Tablet 0.2 mg PO BEDTIME lorazepam 0.5 mg Tablet 0.5 mg PO DAILY PRN (Reason: Agitation) Rx Instructions: administer first for agitation fluoxetine 20 mg Tablet 20 mg PO DAILY Rx Instructions: take with 10mg tablet risperidone 1 mg Tablet 1 mg PO DAILY risperidone [Risperdal] 0.5 mg Tablet 0.5 mg PO BID PRN (Reason: Agitation) Rx Instructions: administer 30 min after PRN lorazepam in ineffective melatonin 10 mg Tablet 10 mg PO BEDTIME lorazepam [Ativan] 1 mg tablet 1 mg PO DAILY@1700 Print Language: [place]
--- NOTE | 2025-04-28 13:11 | MHC.CARE ---
Pt currently meets the criteria for a higherl level of care and will be a DDU bedsearch. Section 12a in chart. ED provider in agreement.
[2025-04-28 21:42] VITALS: BP 112/79
--- NOTE | 2025-04-29 | ECG_ITS ---
Test Reason : psych clearance Blood Pressure : */* mmHG Vent. Rate : 78 BPM Atrial Rate : 78 BPM P-R Int : 176 ms QRS Dur : 86 ms QT Int : 382 ms P-R-T Axes : 30 77 17 degrees QTcB Int : 435 ms Normal sinus rhythm Normal ECG When compared with ECG of 05-Jul-2021 15:04, Vent. rate has decreased by 53 bpm T wave inversion no longer evident in Anterolateral leads Referred By: Santos Ness Electronically Signed By: ZAYNAB SOLITARIO
[2025-04-29 03:56] VITALS: BP 112/69; PULSE 75; RESP 16; TEMP 37; O2SAT 96
--- NOTE | 2025-04-29 07:49 | PHA.MEDREC ---
Pharmacy Consult ? Medication Reconciliation Pharmacy has reviewed the medication reconciliation completed by nursing. Utilized list from facility, updated lorazepam 1mg @1600, melatonin 20mg at bedtime, and Senna Pluss 1 cap BID.
[2025-04-29 08:09] LABS: UPreg QC Valid YES
--- NOTE | 2025-04-29 09:43 | PC.NURSE ---
Addendum entered by Cindy Solorzano RN 04/29/25 09:44: Pt is a 24 yo female who has reportedly began decompensating significantly for the past few months. Per staff Pt is far off from her baseline. They stated Pt has eloped from the at least 4 times in 2 days, presented after breaking a window and attempting to elope. She has become increasingly aggressive assaulting staff and residents. Pt has had an increase in hyperactivity. There are alarms and locks on all the windows and doors and Pt has reportedly broke all the alarms and broke windows to elope from the home. Pt is extremely vulnerable in the community due to her intellectual disability. Staff does not feel Pt's medications are effective; especially PRN medications. She had an appointment with her new medication prescriber 3 weeks ago and due to it being the first appointment was not comfortable making medication adjustments. Staff stated Pt is on a 1:1 at all times and all has the most intense safety protocols in place however is unable to remain safe in the at this time. Patient is a DDU bed search at this time. Patient alert with significant attention seeking behavior. Required frequent attempts to re-direct and distraction items provided. Original Note: Medical History Cerebral palsy Autism Development disorder, mixed GERD (gastroesophageal reflux disease)
--- NOTE | 2025-04-29 16:56 | PC.NURSE ---
Patients behavior extremely labile between crying, laughing hysterically and screaming uncontrollably. Has significant attention seeking behavior with inability to self regulate. laundromat worker supposed to be at the bedside and none noted since last night. CARE team aware and reaching out to DDS.
--- NOTE | 2025-04-29 17:14 | MHC.CARE ---
RE: half-way staffing patient while in the ED, spoke with Dr. Lizzie Rico from [facility] and left message from nursing home ladder operator Norma Islas to report that no staff has been to the hospital since yesterday.
[2025-04-29 17:21] VITALS: BP 127/71; PULSE 102; RESP 18; TEMP 37.3; O2SAT 96
--- NOTE | 2025-04-29 20:10 | PC.NURSE ---
Pt had multiple bowel movements today and did not want laxative.
--- NOTE | 2025-04-29 23:46 | PC.NURSE ---
Security brought group tester back with her belongings. willow worker told that she cannot have her personal belongings in the pod. Security brought worker back out of pod to lock up belongings. willow worker never returned.
--- NOTE | 2025-04-30 00:08 | PC.NURSE ---
Pt noted to be yelling and swearing at times. Reassurance provided to patient that if she needs help then we are here to help.
[2025-04-30 07:03] VITALS: BP 98/80; PULSE 104; RESP 20; TEMP 36.4; O2SAT 100
--- NOTE | 2025-04-30 08:48 | PM.PSYCN ---
History of Present Illness Date of Service: 04/30/25 Chief Complaint: aggressive senior living Sources of Information: patient interviewed, chart reviewed and crisis/core team assessment reviewed HPI Narrative: Patient is a 24-year-old female with history of developmental delay lives in a senior living sent to the ED for increased aggressive and decompensated behaviors over the past weeks/months, aggressive with staff and attempt at elopement several times over the past 2 days. Patient is a limited historian and information taken from collateral. Since coming to the emergency room, patient has been calm and in good behavioral and impulse control without any aggression at all. She is quite limited and though friendly affect with mortgage underwriter she can not really answer many questions and asks mortgage underwriter home?...I go home today? Metal Furniture Assembler asked if patient had gotten angry at the senior living and she said yes however she could not seem to answer in more detail and or able to answer questions about why or what was frustrating or upsetting her. Instead she just asked again go home today? Metal Furniture Assembler reviewed labs and there does not seem to be a organic contribution. Metal Furniture Assembler reviewed medications. At this point and in this hospital setting, it is very difficult or impossible to make significant medication changes or even recommendations. Patient has remained in good behavioral and impulse control without any aggression or hyperactivity at all. If patients dysregulated behaviors were only due to inadequate medication regimen, her dysregulated behaviors would likely continue here in the ED. Patient is calm and in control which seems to indicate that her dysregulated behaviors have more to do with something within the setting of the senior living- perhaps changes there or troublesome interactions with peers or staff... Metal Furniture Assembler agrees that medication changes might be helpful but only in combination with a thorough examination of other possibly contributing external factors. Also, medication changes are best evaluated when made while patient is in her natural senior living setting; in this setting, patient can be observed and it will be much more clear if medication changes are effective. At this time patient does not require inpatient hospitalization. Metal Furniture Assembler recommends Cony return to her senior living (as she clearly wants to do) and recommends that group fitness assistant department head work in conjunction with Cony's outpatient prescriber to more fully assess possible causes for her dysregulated behaviors and to develop a treatment plan. Medical Evaluation Reviewed: Yes [facility] Medical History (Updated 04/30/25 @ 16:16 by Deep Apodaca MD) Developmental disorder Cerebral palsy Autism Development disorder, mixed GERD (gastroesophageal reflux disease) Diagnostics Vital Signs (24Hr): Vital Signs - 24 hr 04/29/25 17:21 04/30/25 07:03 Temperature 99.2 F 97.6 F Pulse Rate 102 H 104 H Respiratory Rate 18 20 Blood Pressure 127/71 98/80 Pulse Oximetry 96 100 Oxygen Delivery Method Room Air Room Air BMI result Body Mass Index 27.4 Labs 04/28/25 11:43 04/28/25 11:43 Labs: Laboratory Results - last 48 hr 04/28/25 04/28/25 11:10 11:43 WBC 6.4 RBC 4.59 Hgb 14.6 Hct 42.1 MCV 91.7 MCH 31.8 MCHC 34.7 RDW 12.8 Plt Count 225 MPV 9.7 Immature Gran % (Auto) 0.2 Neut % (Auto) 64.0 Lymph % (Auto) 26.8 [place] % (Auto) 5.8 Eos % (Auto) 2.3 Baso % (Auto) 0.9 Lymph # (Auto) 1.7 [place] # (Auto) 0.4 Eos # (Auto) 0.2 Baso # (Auto) 0.1 Abs Immat Gran (auto) 0.01 Absolute Neuts (auto) 4.1 Absolute Nucleated RBC 0.000 Nucleated RBC % (auto) 0.0 Sodium 143 Potassium 3.6 Chloride 106 Carbon Dioxide 24 Anion Gap 17 BUN 11 Creatinine 0.83 Estim Creat Clear Calc 103.6 Estimated GFR > 60 Random Glucose 98 Calcium 9.7 Magnesium 1.9 Total Bilirubin 0.3 AST 28 ALT 24 Alkaline Phosphatase 76 Total Protein 8.2 H Albumin 5.0 Urine Color Yellow Urine Appearance Clear Urine pH 6.0 Ur Specific [place] 1.015 Urine Protein Negative Urine Glucose (UA) Negative Urine Ketones Negative Urine Blood Moderate (2+) H Urine Nitrite Negative Ur Leukocyte Esterase Trace H Urine RBC 11-20 H Urine WBC 0-5 Ur Squamous Epith Cells 0-2 Urine Bacteria None Seen Hyaline Casts 0-2 Urine Test NEGATIVE Urine Opiates Screen Not Detected Ur Buprenorphine Scrn Not Detected Ur Oxycodone Screen Not Detected Urine Methadone Screen Not Detected Urine Fentanyl Screen Not Detected Ur Barbiturates Screen Not Detected Ur Phencyclidine Scrn Not Detected Ur Amphetamines Screen Not Detected U Benzodiazepines Scrn Not Detected Urine Cocaine Screen Not Detected U Marijuana (THC) Screen Not Detected Ethyl Alcohol < 10 Mental Status Exam Mental Status Exam Narrative: Pt is alert and oriented; behavior is cooperative, friendly on approach and calm; patient is not in distress; dressed in hospital attire with unkempt hair; mood is calm and affect congruent; eye contact appropriate; Speech is limited but normal volume; no psychomotor agitation/retardation present; thought process is concrete goal directed; Thought content is on going home; Patients insight and judgment impaired but likely baseline. Medications Medications Current Medications Acetaminophen (Acetaminophen 325 Mg Tablet) 650 mg PO Q6H PRN PRN Reason: Pain (Scale Score 1-3) Last Admin: 04/29/25 22:21 Dose: 650 mg Clonidine HCl (Clonidine Hcl 0.2 Mg Tablet) 0.2 mg PO BEDTIME [facility]; Protocol Last Admin: 04/29/25 20:01 Dose: 0.2 mg Famotidine (Famotidine 20 Mg Tablet) 20 mg PO DAILY [facility] Last Admin: 04/30/25 07:51 Dose: 20 mg Fluoxetine HCl (Fluoxetine Hcl 10 Mg Capsule) 10 mg PO DAILY [facility] Last Admin: 04/29/25 09:13 Dose: 10 mg Fluoxetine HCl (Fluoxetine Hcl 20 Mg Capsule) 20 mg PO DAILY [facility] Last Admin: 04/30/25 07:51 Dose: 20 mg Guaifenesin (Guaifenesin 200 Mg/10 Ml 10 Ml Liquid) 10 ml PO Q4H PRN PRN Reason: Cough Levothyroxine Sodium (Levothyroxine Sodium 112 Mcg Tablet) 112 mcg PO DAILY@0600 [facility] Last Admin: 04/30/25 06:39 Dose: 112 mcg Loratadine (Loratadine 10 Mg Tablet) 10 mg PO DAILY [facility] Last Admin: 04/30/25 07:51 Dose: 10 mg Lorazepam (Lorazepam 1 Mg Tablet) 1 mg PO DAILY@1700 [facility] Last Admin: 04/29/25 17:26 Dose: 1 mg Lorazepam (Lorazepam 0.5 Mg Tablet) 0.5 mg PO DAILY PRN PRN Reason: Agitation Last Admin: 04/29/25 14:51 Dose: 0.5 mg Melatonin (Melatonin 3 Mg Tablet) 9 mg PO BEDTIME [facility] Last Admin: 04/29/25 20:01 Dose: 9 mg Non-Formulary Medication (Levonorgestrel-Ethinyl Estrad [Aviane]) 1 tab PO DAILY [facility] Polyethylene Glycol (Polyethylene Glycol 3350 17 Gm Powd.Pack) 17 gm PO DAILY PRN PRN Reason: Constipation Risperidone (Risperidone 0.5 Mg Tablet) 0.5 mg PO BID PRN PRN Reason: Agitation Risperidone (Risperidone 1 Mg Tablet) 1 mg PO DAILY [facility] Last Admin: 04/30/25 07:51 Dose: 1 mg Risperidone (Risperidone 2 Mg Tablet) 2 mg PO DAILY@1700 [facility] Last Admin: 04/29/25 17:26 Dose: 2 mg Senna/Docusate Sodium (Sennosides/Docusate Sodium Tablet) 2 tab PO BID [facility] Last Admin: 04/30/25 07:51 Dose: 2 tab Allergies Allergies Allergy/AdvReac Type Severity Reaction Status Date / Time No Known Allergies Allergy Verified 04/28/25 09:45 Assessment & Plan Assessment & Plan (1) Developmental disorder: Status: Acute Code(s): F89 - Unspecified disorder of psychological development Plan Patient is a 24-year-old female with history of developmental delay lives in a senior living sent to the ED for increased aggressive and decompensated behaviors over the past weeks/months, aggressive with staff and attempt at elopement several times over the past 2 days. Patient is a limited historian and information taken from collateral. Since coming to the emergency room, patient has been calm and in good behavioral and impulse control without any aggression at all. She is quite limited and though friendly affect with mortgage underwriter she can not really answer many questions and asks mortgage underwriter home?...I go home today? Metal Furniture Assembler asked if patient had gotten angry at the senior living and she said yes however she could not seem to answer in more detail and or able to answer questions about why or what was frustrating or upsetting her. Instead she just asked again go home today? Metal Furniture Assembler reviewed labs and there does not seem to be a organic contribution. Metal Furniture Assembler reviewed medications. At this point and in this hospital setting, it is very difficult or impossible to make significant medication changes or even recommendations. Patient has remained in good behavioral and impulse control without any aggression or hyperactivity at all. If patients dysregulated behaviors were only due to inadequate medication regimen, her dysregulated behaviors would likely continue here in the ED. Patient is calm and in control which seems to indicate that her dysregulated behaviors have more to do with something within the setting of the senior living- perhaps changes there or troublesome interactions with peers or staff... Metal Furniture Assembler agrees that medication changes might be helpful but only in combination with a thorough examination of other possibly contributing external factors. Also, medication changes are best evaluated when made while patient is in her natural senior living setting; in this setting, patient can be observed and it will be much more clear if medication changes are effective. Impression/Plan: At this time patient does not require inpatient hospitalization. Metal Furniture Assembler recommends Cony return to her senior living (as she clearly wants to do) and recommends that group fitness assistant department head work in conjunction with Cony's outpatient prescriber to more fully assess possible causes for her dysregulated behaviors and to develop a treatment plan. Total time managing care of this patient today ____ minutes. Patient educated on: therapeutic strategies Informed Consent: does not understand
--- NOTE | 2025-04-30 10:02 | PC.NURSE ---
assumed care of patient at 0700, patient is awake and alert, often needs frequent redirection. patient has two approved baby dolls in room. colored and ate breakfast this morning. no [facility] staff here at this time, plan for [facility] bedsearch
== END 2025-04-30 14:05 | disposition home or self-care (01) ==
PROVIDERS: Physician Assistant; Emergency Provider Emergency Medicine
DX: F23 Brief psychotic disorder (principal); F89 Unspecified disorder of psychological development; F91.9 Conduct disorder, unspecified
CPT/HCPCS: 36415; 80053; 80307; 81001; 81025; 83735; 85025; 93005; 99285; S9485

== ENCOUNTER → 2025-04-28 10:26 | Outpatient (BNV) | payer OTHER, SELFPAY | PROVIDERS: Emergency Provider Emergency Medicine; Visit Provider Psychiatry & Neurology Psychiatry | DX: F89 Unspecified disorder of psychological development (principal) | CPT/HCPCS: 99283 ==

== ENCOUNTER → 2025-04-29 08:54 | Outpatient (BNV) | payer OTHER, SELFPAY | PROVIDERS: Emergency Provider Emergency Medicine; Visit Provider Internal Medicine | DX: Z13.6 Encounter for screening for cardiovascular disorders (principal) | CPT/HCPCS: 93010 ==